=== PATIENT | female | born 1985 | race Caucasian/White ===

== ENCOUNTER 2017-08-24 07:30 | Inpatient (IN) ==
--- OUTSIDE RECORDS SUMMARY | 2017-08-24 11:08 | External Medical Summary | Continuity of Care Document ---
:1985 Author Organization [facility] Address [address] [place], [place] [id number] Phone Care Team Providers Name Role Phone Lynette Stiles MD Unavailable Unavailable Allergies, Adverse Reactions, Alerts Substance Reaction Severity Status No Known Drug Allergies Unknown Active Medications Medication Instructions Dosage Effective Dates Status Comments (start - stop) aspirin 81 mg chew 1 tablet by 81 MG - Active chewable tablet oral route every day labetalol 100 mg take 1 tablet by 100 MG - Active tablet oral route 2 times every day Vitamin take 1 tablet by Not Available - Active tablet oral route every day Zantac 75 mg take 1 tablet by 75 MG - Active tablet oral route every day with a glass of water Problems Condition Effective Dates (start - stop) Clinical Status Maternal care for excess growth, - second tri, unsp 18 weeks gestation of - Supervision of other high risk - pregnancies, first trimester Pre-existing essential htn comp - , first trimester Previous Low Transverse - Obesity complicating , first - trimester Encounter for screening of - mother Encntr screen for infections w sexl - mode of transmiss Encounter for screening for oth - infec/parastc diseases Polycystic ovarian syndrome Morbid (severe) obesity due to excess calories 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 Pap Smear Screening, Cervix Encounter for removal of intrauterine contraceptive device Encounter for removal of intrauterine - contraceptive device Body mass index (BMI) 50-59.9 , adult Supervision of other high risk - pregnancies, first trimester Pre-existing essential htn comp - , first trimester Supervision of other high risk - pregnancies, second trimester Maternal care for excess growth, - second tri, unsp 20 weeks gestation of - Pre-existing essential htn comp - , first trimester 13 weeks gestation of - Supervision of other high risk - pregnancies, second trimester Pre-existing essential htn comp - , second trimester 20 weeks gestation of - Procedures Procedure Date OB Visit No Charge Results Test Name Date and Time Measure Units Reference Range Abnormal Flag Comments Unknown Advance Directives Directive Yes / No Effective Date File Name Unknown Encounters Encounter Practice Location Reason(s) Diagnoses Date Provider Care Team Description For Visit Members Crystal [place] Supervision of Mar- Baez Referring In Womens other high risk 3-201 Brianna. Provider: Health PA, pregnancies, 7 700 Brianna Baez PO [address] second Medical K, 700 1522, [facility] [address], [facility] Dr GARCIA, htn comp 120, Bahman 120, , , second Binh [place], [email or web address] weeks RADHA GARCIA, tel:+2 gestation of [phone]. , [place]. tel: tel: [phone] Crystal [place] Supervision of Mar- Baez Referring In Womens Ultrasound other high risk 3-201 Brianna. Provider: Health PA, pregnancies, 7 700 Brianna Baez [facility] Medical K, 700 1522, [facility] care for excess Dr, [facility] Dr GARCIA, growth, 120, Bahman 120, [id number], second Binh [place], [place] unsp20 weeks RADHA GARCIA, tel:2 gestation of [phone]. , [place]. tel: tel: [phone] Crystal [place] Maternal care for Aug-2 Baez Referring In Womens excess 9-201 Brianna. Provider: Health PA, growth, second 7 700 Brianna Baez PO Box tri, unsp18 weeks Medical K, 700 1522, gestation of [facility] [place], , [facility] Dr GARCIA, 120, Bahman 120, [id number], Binh [place], RADHA, RADHA, tel: [phone]. , [place]. tel: tel: [phone] Crystal [place] Aug-0 Baez Referring In Womens 2-201 Brianna. Provider: Health PA, 7 700 Brianna Baez PO Box Medical , 700 1522, [place] [address], [facility] Dr GARCIA, 120, Bahman 120, [id number], Binh [place], RADHA, [place], tel:[phone]. , [place]. tel: tel: [phone] [place] Pre-existing Farrukh-2 Baez Referring In Womens essential htn 7-201 Brianna. Provider: Health EPHRAIM, comp , 7 700 Brianna Baez PO Box first [email or web address] Medical , 700 1522, weeks gestation [facility], of , [facility] Dr GARCIA, 120, Bahman 120, [id number], Binh [place], RADHA, [place], tel: [phone]. , [place]. tel: tel: [phone] [place] Supervision of Jan-1 Baez Referring In Womens other high risk 0-201 Brianna. Provider: Health PA, pregnancies, 7 700 Brianna Baez PO Box first Medical K, 700 1522, trimesterPre-exis [facility] [place], ting essential , [facility] Dr GARCIA, htn comp 120, Bahman 120, [id number], , first Binh [place], [place] trimester [place], RADHA, tel: [phone]. , [place]. tel: tel: [phone] [place] Supervision of Baez Referring In Womens other high risk 5-201 Brianna. Provider: Health PA, pregnancies, 7 700 Brianna Baez PO Box first Medical K, 700 1522, trimesterPre-exis [place] [address], [facility] Dr GARCIA, htn comp 120, Bahman 120, [id number], , first Binh [place], trimesterPrevious RADHA, RADHA, tel: Low Transverse [phone]. C-SectionObesity , [place]. tel: complicating tel: [phone] , first [phone] trimesterEncounte r for screening of motherEncntr screen for infections w sexl mode of transmissEncounte r for screening for oth infec/parastc diseases [facility] Baez Referring In Womens ovarian 7-201 Brianna. Provider: Health PA, syndromeMorbid 6 700 Brianna Baez PO Box (severe) obesity Medical , 700 1522, due to excess [facility] [place], caloriesEncnthiro Rice, [facility] Dr GARCIA, for drywall sprayer exam 120, Bahman 120, , (general) Binh [place], (routine) w RADHA GARCIA, tel: abnormal [phone]. findingsPap Smear , [place]. tel: Screening, tel: [phone] CervixEncounter [phone] for removal of intrauterine contraceptive deviceEncounter for removal of intrauterine contraceptive deviceBody mass index (BMI) 50-59.9 , adult [facility] Mar-3 Baez In Womens 0-200 Brianna. Health PA, 9 700 PO [address] Medical [address], [place] [address] Anabell, [facility] [place], 120, , [place], tel: [phone] , [place]. tel: [phone] Family History Family Member Diagnosis Age At Onset Father Hypertension No family history of Breast Cancer No family history of Venous Thrombosis Paternal Grandmother Diabetes mellitus Mother Neurological Disorder Father Stroke 59 No family history of Pulmonary Embolism No family history of Ovarian Cancer No family history of Thrombosis No family history of Osteoporosis No family history of Colon Cancer Father Diabetes mellitus No family history of Cardiovascular Disease Maternal Aunt Thyroid Disorder Paternal Grandmother Kidney Cancer Maternal Grandmother Alzheimers Immunizations Vaccine Date Status Comments Unknown Payers Payer name Insurance type Covered green party ID Authorization(s) BC Out Of State [id number] Social History Type Description Quantity Date Captured Alcohol Use Details No Caffeine Use Details Unknown Tobacco Use Status Smoking Status Former smoker Vital Signs Date / Height Weight BMI Pulse Blood Temperature Respiratory Body Head BMI Time: Rate Pressure Rate Surface Circumference percentile Area 288.00 51.0 139/90 -2017 lbs 1 mm[Hg] 8:58 kg/m AM eter (2) 50.5 -2017 2 8:56 kg/m AM eter (2) Chief Complaint And Reason For Visit Unknown Chief Complaint And Reason For Visit Reason For Referral Reason For Referral Unknown Plan Of Care Date Type Action Status Goal Lifestyle education regarding completed diet Appointment Virginia Rosas BOOKED Future Order: Lab Order Pap Smear With HPV Reflex If Ordered ASCUS ([id number]) Future Order: Radiology Order Complete OB Ultrasound > 14 Ordered Weeks ([id number]) Date Type Problem Goal Intervention Status Start Date Unknown. History Of Present Illness Encounter Date Complaint History Of Present Illness This patient has no known history of present illness Functional Status Encounter Date Functional Assessment Cognitive Assessment Unknown Medications Administered Medication Instructions Dosage Effective Dates (start - stop) Status Comments Drug Treatment Unknown Instructions Date Instruction Additional Information HIV and other routine tests risk factors identified by history anticipated course of care nutrition and weight gain counseling, special diet toxoplasmosis precautions (cats / raw meat) sexual activity exercise indications for ultrasound influenza vaccine environmental / work hazards travel tobacco (ask, advise, assess, assist and arrange) alcohol illicit / recreational drugs use of any medications (including supplements, vitamins, herbs, OTC drugs) smoking counseling domestic violence seat belt use childbirth classes / hospital facilities hospital registration genetic testing risks Giving encouragement to exercise Related to Body mass index 50.0-59.9 Lifestyle education regarding diet Related to Body mass index 50.0-59.9
--- OUTSIDE RECORDS SUMMARY | 2017-08-24 11:08 | External Medical Summary | Continuity of Care Document ---
:1985 Author Organization [facility] Address [address] [place], [place] [id number] Phone Care Team Providers Name Role Phone [...] Effective Dates (start - stop) Clinical Status Supervision of other high risk - pregnancies, second trimester Maternal care for excess growth, - second tri, unsp 20 weeks gestation of - Supervision of other high risk - pregnancies, first trimester Pre-existing essential htn comp - , first trimester Previous Low Transverse - Obesity complicating , first - trimester Encntr screen for infections w sexl - mode of transmiss Encounter for screening for oth - infec/parastc diseases Encounter for screening of - mother Polycystic ovarian syndrome Morbid (severe) obesity due to excess calories 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 [...] second trimester 20 weeks gestation of - Pre-existing essential htn comp - , first trimester 13 weeks gestation of - Maternal care for excess growth, - second tri, unsp 18 weeks gestation of - Procedures Procedure Date Ultrasound exam of preg uterus, complete Results Test Name Date and Time Measure Units Reference Range Abnormal Flag Comments Unknown Advance Directives Directive Yes / No Effective Date File Name Unknown Encounters Encounter Practice Location Reason(s) Diagnoses Date Provider Care Team Description For Visit Members Crystal [place] Supervision of Mar- Baez Referring In Womens other high risk 3-201 Brianna. Provider: Health PA, pregnancies, 7 700 Brianna Baez PO Box [facility] Medical K, 700 1522, trimesterPre-exis [facility] [address], [facility] Dr GARCIA, htn comp 120, Bahman 120, , , second Binh [place], [email or web address] weeks RADHA GARCIA, tel:+2 gestation of [phone]. , [place]. tel: tel: [phone] Crystal [place] Supervision of Mar- Baez Referring In Womens Ultrasound other high risk 3-201 Brianna. Provider: Health PA, pregnancies, 7 700 Brianna Baez PO Box second Medical K, 700 1522, trimesterMaternal [facility] [place], dominic for excess Dr, [facility] Dr GARCIA, growth, 120, Bahman 120, [id number], second Binh miller [place], [place] unsp20 weeks RADAH GARCIA, tel:2 gestation of [phone]. , [place]. tel: tel:[phone] Crystal [place] Maternal care for Aug-2 Baez Referring In Womens excess 9-201 Brianna. Provider: Health PA, growth, second 7 700 Brianna Baez PO Box tri, unsp18 weeks Medical , 700 1522, gestation of [facility], , [facility] Dr GARCIA, 120, Bahman 120, , Binh [place], RADHA, RADHA, tel: [phone]. , [place]. tel: tel: [phone] Crystal [place] Aug-0 Baez Referring In Womens 2-201 Brianna. Provider: Health PA, 7 700 Brianna Baez PO Box Medical , 700 1522, [facility] Dr Anabell, [facility] Dr GARCIA, 120, Bahman 120, , Binh [place], RADHA, [place], tel:[phone]. , [place]. tel: tel: [phone] Crystal [place] Pre-existing Farrukh-2 Baez Referring In Womens essential htn 7-201 Brianna. Provider: Health PA, comp , 7 700 Brianna Baez PO Box first [email or web address] Medical , 700 1522, weeks gestation [facility], of , [facility] Dr GARCIA, 120, Bahman 120, , Binh [place], RADHA, [place], tel: [phone]. , [place]. tel: tel: [phone] [place] Supervision of Jan-1 Baez Referring In Womens other high risk 0-201 Brianna. Provider: Health PA, pregnancies, 7 700 Brianna Baez PO Box first Medical , 700 1522, trimesterPre-exis [facility] [place], ting essential , [facility] Dr GARCIA, htn comp 120, Bahman 120, [id number], , first Binh [place], [place] trimester RADHA, RADHA, tel: [phone]. , [place]. tel: tel: [phone] [place] Supervision of Baez Referring In Womens other high risk 5-201 Brianna. Provider: Health PA, pregnancies, 7 700 Brianna Baez PO Box first Medical K, 700 1522, trimesterPre-exis [place] [address], [facility] Dr GARCIA, htn comp 120, Bahman 120, [id number], , first Binh [place], trimesterPrevious RADHA, RADHA, tel: Low Transverse [phone]. C-SectionObesity , [place]. tel: complicating tel: [phone] , first [phone] trimesterEncntr screen for infections w sexl mode of transmissEncounte r for screening for oth infec/parastc diseasesEncounter for screening of mother Crystal Cárdenas Baez Referring In Womens ovarian 7-201 Brianna. 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 findingsPap Smear , [place]. tel: Screening, tel: [phone] CervixEncounter [phone] for removal of intrauterine contraceptive deviceEncounter for removal of intrauterine contraceptive deviceBody mass index (BMI) 50-59.9 , adult [facility] Sep-3 Baez In Womens 0-200 Brianna. Health PA, 9 700 PO [address] Medical [address], [place] [address] Anabell, [facility] [place], 120, , [place], [place], tel: [phone] , [place]. tel: [phone] Family History Family Member Diagnosis Age At [...] Insurance type Covered green party ID Authorization(s) BCBS Out Of State [id number] Social History Type Description Quantity Date Captured Unknown Vital Signs Date / Height Weight BMI Pulse Blood Temperature Respiratory Body Head BMI Time: Rate Pressure Rate Surface Circumference percentile Area Unknown Chief Complaint And Reason For Visit Unknown Chief Complaint And Reason For Visit Reason For Referral Reason For Referral Unknown Plan Of Care Date Type Action Status Goal Lifestyle education regarding completed diet Appointment Virginia Rosas BOOKED Future Order: Radiology Order Complete OB Ultrasound > 14 Ordered Weeks ([id number]) Future Order: Lab Order Pap Smear With HPV Reflex If Ordered ASCUS ([id number]) Date Type Problem Goal Intervention Status Start [...]
--- OUTSIDE RECORDS SUMMARY | 2017-08-24 11:08 | External Medical Summary | Summary of Care ---
:1985 Author Name Isael Devries M.D. Address Unavailable Unavailable , Care Team Providers Name Role Phone Isael Devries M.D. 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 Started ActiveNIFEdipine ER 30 MG Oral Tablet Extended Release 24 Hour Refills: 0 Arpan Devries M.D. Started ActiveNIFEdipine ER 60 MG Oral Tablet Extended Release 24 Hour Refills: 0 Arpan Devries M.D. Started ActivePrenatal Vitamin 27-0.8 MG Oral Tablet Refills: 0 Arpan Devries M.D. Started ActiveZantac 150 MG Oral Tablet Refills: 0 Arpan Devries M.D. Started Active Allergies and Adverse Reactions Name Dates Details No Known Drug Allergies Status: Active Procedures Procedure Dates Details History of Section Procedures not documented Immunization Name Dates Details Immunizations not documented Family History Mother Name Dates Details Family history of Seizures (780.39, R56.9) Status: Active Father Name Dates Details Family history of diabetes mellitus (V18.0, Z83.3) Status: Active Family history of sleep apnea (V19.8, Z82.0) Status: Active Family history of cerebrovascular accident (CVA) (V17.1, Z82.3) Status: Active Family history of myocardial infarction (V17.3, Z82.49) Status: Active Social History Name Dates Details Smoking StatusFormer smoker Vital Signs Date Test Result Details 13:19 BP Systolic 122 mm[Hg] Status: BP Diastolic 84 mm[Hg] Status: Heart Rate 80 /min Status: Height 64 in Status: Weight 318 lb Status: O2 SAT 96 % Status: Body Mass Index Calculated 54.59 kg/m2 Status: Body Surface Area Calculated 2.38 m2 Status: Results Date Description Value Details Results not documented Plan of Care Planned Observations Name Dates Details Planned Goals not documented Goal Instructions Instructions not documented Encounters Appointment; Arpan Devries On Encounter Diagnosis: Problem not documented 13:30 Appointment; Sanna Morejon On 20-Aug-2014 Encounter Diagnosis: Problem not documented 10:15
--- OUTSIDE RECORDS SUMMARY | 2017-08-24 11:08 | External Medical Summary | Continuity of Care Document ---
:1985 Author Organization [facility] Address [address] [place], [place] [id number] Phone Care Team Providers Name Role Phone [...] every day with a glass of water iron 325 mg (65 mg take 1 tablet by 325 MG - Active iron) tablet ORAL route 2 times every day Problems Condition Effective Dates (start - stop) Clinical Status Pre-existing essential htn comp - , third trimester Maternal care for excess growth, - third trimester, unsp Obesity complicating , third - trimester 29 weeks gestation of - Supervision of other high risk - pregnancies, first trimester Pre-existing essential htn comp - , first trimester Previous Low Transverse - Obesity complicating , first - trimester Encntr screen for infections w sexl - mode of transmiss Encounter for screening for oth - infec/parastc diseases Encounter for screening of - mother Pre-existing essential htn comp - , second trimester Previous Low Transverse - 27 weeks gestation of - Polycystic ovarian syndrome Morbid (severe) obesity due to excess calories 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 [...] essential htn comp - , second trimester 24 weeks gestation of - Supervision of other high risk - pregnancies, second trimester Maternal care for excess growth, - second tri, unsp 20 weeks gestation of - Supervision of other high risk - pregnancies, second trimester Pre-existing essential htn comp - , second trimester 20 weeks gestation of - Supervision of other high risk - pregnancies, third trimester Pre-existing essential htn comp - , third trimester Previous Low Transverse - Obesity complicating , third - trimester Pre-existing essential htn comp - , first trimester 13 weeks gestation of - Pre-existing essential htn comp - , third trimester 32 weeks gestation of - Maternal care for excess growth, - second tri, unsp 18 weeks gestation of - Procedures Procedure Date Ultrasnd preg uterus, flwup/repeat Results Test Name Date and Time Measure Units Reference Range Abnormal Flag Comments Unknown Advance Directives Directive Yes / No Effective Date File Name Unknown Encounters Encounter Practice Location Reason(s) Diagnoses Date Provider Care Team Description For Visit Members Crystal [place] Pre-existing Baez Referring In Womens essential htn 5-201 Brianna. Provider: Health EPHRAIM, comp , 7 700 Brianna Baez PO Box third [id number] Medical K, 700 1522, weeks gestation [facility], of , [facility] [address] GARCIA, 120, [place] 120, [id number], Binh [place], RADHA GARCIA, tel:+ [phone]. , [place]. tel: tel:[phone] Associates Binh Supervision of Nov-2 Baez Referring In Womens other high risk 0-201 Brianna. Provider: Health PA, pregnancies, 7 700 Brianna Baez PO Box third Medical K, 700 1522, trimesterPre-exis [facility], ting essential , [facility] Dr GARCIA, htn comp 120, [place] 120, , , third Binh [place], trimesterPrevious RADHA GARCIA, tel:+ Low Transverse [phone]. [facility] [place]. tel: complicating tel:[phone] , third [phone] trimester Associates [facility] Pre-existing Nov-2 Baez Referring In Womens Ultrasound essential htn 0-201 Brianna. Provider: Health EPHRAIM, comp , 7 700 Brianna Baez PO Box third Medical K, 700 1522, trimesterMaternal [facility], care for excess , [facility] Dr GARCIA, growth, 120, [place] 120, , third trimester, Binh [place], unspObesity RADHA GARCIA, tel: complicating [phone]. , third , [place]. tel: [id number] weeks tel: [phone] gestation of [id number] Associates [facility] Pre-existing Nov-0 Baez Referring In Womens essential htn 2-201 Brianna. Provider: Health EPHRAIM, comp , 7 700 Brianna Baez PO Box second Medical K, 700 1522, trimesterPrevious [facility], Low Transverse , [facility] Dr GARCIA, [id number] weeks 120, [place] 120, , gestation of Binh [place], [place] RADHA GARCIA, tel:[phone]. , [place]. tel: tel: [phone] Crystal [place] Supervision of Oct-1 Baez Referring In Womens other high risk 0-201 Brianna. Provider: Zack YE, pregnancies, 7 700 Brianna Baez PO Box second Medical , 700 1522, trimesterPre[facility]exis [facility], [facility] Dr GARCIA, htn comp 120, [place] 120, [id number], , second Binh [place], [place] [id number] weeks RADHA, RADHA, tel:+ gestation of [phone]. , [place]. tel: tel: [phone] Crystal [place] Supervision of Sep-1 Baez Referring In Womens other high risk 3-201 Brianna. Provider: Zack YE, pregnancies, 7 700 Brianna Baez PO Box [facility] Medical , 700 1522, trimesterPre-exis [facility], [facility] Dr GARCIA, htn comp 120, [place] 120, [id number], , second Binh [place], [place] [id number] weeks RADHA, RADHA, tel: gestation of [phone]. , [place]. tel: tel: [phone] Crystal [place] Supervision of Sep-1 Baez Referring In Womens Ultrasound other high risk 3-201 Brianna. Provider: Zack YE, pregnancies, 7 700 Brianna Baez PO Box second Medical , 700 1522, trimesterMaternal [facility], care for excess Dr, [facility] Dr GARCIA, growth, 120, [place] 120, [id number], second Binh [place], [place] unsp20 weeks RADHA GARCIA, tel: gestation of [phone]. , [place]. tel: tel: [phone] Crystal [place] Maternal care for Aug-2 Baez Referring In Womens excess 9-201 Brianna. Provider: Zack YE, growth, second 7 700 Brianna Baez PO Box tri, unsp18 weeks Medical , 700 1522, gestation of [facility], , [facility] Dr GARCIA, 120, [place] 120, [id number], Binh [place], RADHA, RADHA, tel: [phone]. , [place]. tel: tel: [phone] Crystal [place] Aug-0 Baez Referring In Womens 2-201 Brianna. Provider: Health PA, 7 700 Brianna Baez PO Box [facility], 700 1522, [facility] Dr Anabell, [facility] Dr GARCIA, 120, [place] 120, , Binh [place], [place] RADHA, [place], tel:[phone]. , [place]. tel: tel: [phone] Crystal [place] Pre-existing Farrukh-2 Baez Referring In Womens essential htn 7-201 Brianna. Provider: Health PA, comp , 7 700 Brianna Baez PO Box first [id number] [place] [address], 700 1522, weeks gestation [facility], of , [facility] Dr GARCIA, 120, [place] 120, [id number], Binh [place], RADHA, [place], tel: [phone]. , [place]. tel: tel: [phone] Crystal [place] Supervision of Jan-1 Baez Referring In Womens other high risk 0-201 Brianna. Provider: Health PA, pregnancies, 7 700 Brianna Baez PO Box [facility], 700 1522, trimesterPre-exis [facility] [address], [facility] Dr GARCIA, htn comp 120, [place] 120, , , first Binh [place], [place] trimester RADHA, RADHA, tel: [phone]. , [place]. tel: tel: [phone] Crystal [place] Supervision of Jan-0 Baez Referring In Womens other high risk 5-201 Brianna. Provider: Health PA, pregnancies, 7 700 Brianna Baez PO Box first [facility], 700 1522, trimesterPre-exis [facility], [facility] Dr GARCIA, htn comp 120, [place] 120, [id number], , first Binh [place], trimesterPrevious RADHA, RADHA, tel: Low Transverse [phone]. C-SectionObesity , [place]. tel: complicating tel: [phone] , first [phone] trimesterEncntr screen for infections w sexl mode of transmissEncounte r for screening for oth infec/parastc diseasesEncounter for screening of mother [facility] Polycystic November- Baez Referring In Womens ovarian 7-201 Brianna. Provider: Health PA, syndromeMorbid 6 700 Brianna Baez PO Box (severe) obesity Medical , 700 1522, due to excess [place] Joaquina Hung, caloriesEncntr , [facility] Dr GARCIA, for fiber optics supervisor exam 120, [place] 120, [id number], (general) Binh [place], (routine) w RADHA GARCIA, tel: abnormal [phone]. findingsPap Smear , [place]. tel: Screening, tel: [phone] CervixEncounter [id number] for removal of intrauterine contraceptive deviceEncounter for removal of intrauterine contraceptive deviceBody mass index (BMI) 50-59.9 , adult [facility] Sep-3 Baez In Womens 0-200 Brianna. Health PA, 9 700 PO Box Medical [address], [address] Anabell, [place], 120, [id number], [place], [place], tel: [phone] , [place]. tel: [phone] Family History Family Member Diagnosis Age At [...] Grandmother Alzheimers Immunizations Vaccine Date Status Comments Tdap completed Source: New Immunization Record Rhophylac completed Source: New Immunization Record Influenza, injectable, completed Source: New Immunization Record quadrivalent, preservative free, 3 yrs or older Payers Payer name Insurance type Covered alliance party ID Authorization(s) BCBS [place] [id number] BCBS [place] [id number] BCBS [place] [id number] BCBS Out Of [place] [id number] Social History Type Description Quantity Date Captured [...] regarding completed diet Appointment Virginia Rosas BOOKED Appointment Virginia Rosas BOOKED Appointment Virginia Rosas BOOKED Appointment Virginia Rosas BOOKED Appointment Virginia Rosas BOOKED Appointment Virginia Rosas BOOKED Appointment Virginia Rosas BOOKED Appointment Virginia Rosas [facility] C/S BOOKED Future Order: Radiology Order Ultrasound OB Follow-up ([id number]) Ordered Future Order: Lab Order Pap Smear With HPV Reflex If Ordered ASCUS ([id number]) Future Order: Radiology Order Complete OB Ultrasound > 14 Ordered Weeks ([id number]) Date Type Problem Goal Intervention Status Start Date Unknown. History Of Present Illness Encounter Date Complaint History Of Present Illness This patient has no known history of present illness Functional Status Encounter Date Functional Assessment Cognitive Assessment Unknown Medications Administered Medication Instructions Dosage Effective Dates (start - stop) Status Comments Drug Treatment Unknown Instructions Date Instruction Additional Information gestational glucose lab screening HIV and other routine tests risk factors [...]
--- OUTSIDE RECORDS SUMMARY | 2017-08-24 11:08 | External Medical Summary | Continuity of Care Document ---
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 Pap Smear Screening, Cervix Encounter for removal of intrauterine contraceptive device Encounter for removal of intrauterine - contraceptive device Body mass index (BMI) 50-59.9 , adult Supervision of other high risk - pregnancies, first trimester Pre-existing essential htn comp - , first trimester Pre-existing essential htn comp - , first trimester Procedures Procedure Date Unknown Results Test Name Date and Time Measure Units Reference Range Abnormal Flag Comments Unknown Advance Directives Directive Yes / No Effective Date File Name Unknown Encounters Encounter Practice Location Reason(s) Diagnoses Date Provider Care Team Description For Visit Members Crystal [place] Pre-existing Jan-2 Baez Referring In Womens essential htn comp 7-201 Brianna. Provider: Health EPHRAIM, , first 7 700 Brianna Baez PO Box [facility] Medical K, 700 1522, [place] [address], [facility] Dr GARCIA, 120, [place] 120, , Binh [place], RADHA, [place], tel: [phone]. , [place]. tel: tel: [phone] Crystal [place] Supervision of Jan-1 Baez Referring In Womens other high risk 0-201 Brianna. Provider: Health EPHRAIM, pregnancies, first 7 700 Brianna Baez PO Box trimesterPre-exist Medical , 700 152, ing [facility] Dr janine, [facility] Dr GARCIA, first trimester 120, [place] 120, , Binh [place], RADHA, [place], tel:[phone]. , [place]. tel: tel: [phone] Crystal [place] Farrukh-0 Baez In Womens 6-201 Brianna. Health EPHRAIM, 7 700 PO Box Medical [address], [place] [address] Anabell, [facility] [place], 120, [id number], [facility] [place], tel: [phone] , [place]. tel: [phone] Crystal Pur[place] Supervision of Farrukh-0 Baez Referring In Womens other high risk 5-201 Brianna. Provider: Health EPHRAIM, pregnancies, first 7 700 Brianna Baez PO Box trimesterPre-exist Medical K, 700 1522, ing [facility]tn [facility], comp Dr janine, [facility] Dr GARCIA, first 120, [place] 120, , trimesterPrevious Binh [place], Low Transverse RADHA, RADHA, tel: C-SectionObesity [phone]. complicating , [place]. tel: , first tel: [phone] trimesterEncntr [id number] screen for infections w sexl mode of transmissEncounter for screening for oth infec/parastc diseasesEncounter for screening of mother Crystal Binh Polycystic ovarian November- Baez Referring In Womens syndromeMorbid 7-201 Brianna. Provider: Health EPHRAIM, (severe) obesity 6 700 Brianna Baez PO Box due to excess Medical K, 700 1522, caloriesEncntr for Center Joaquina Hung, dope firer exam (general) , [place] [address] Dr GARCIA, (routine) w 120, [place] 120, [id number], abnormal Binh [place], findingsPap Smear RADHA GARCIA, tel: Screening, [phone]. CervixEncounter , [place]. tel: for removal of tel: [phone] intrauterine [id number] contraceptive deviceEncounter for removal of intrauterine contraceptive deviceBody mass index (BMI) 50-59.9 , adult [facility] Sep-3 Baez In Womens 0-200 Brianna. Health EPHRAIM, 9 700 PO Box Medical [address], [place] [address] Anabell, [place], 120, , [place] Binh [place], tel: [phone] , [place]. tel: [phone] Family History Family Member Diagnosis Age At [...] Unknown Payers Payer name Insurance type Covered democrat ID Authorization(s) BCBS Out Of State [id number] Social History Type Description Quantity Date Captured Unknown Vital Signs Date / Height Weight BMI Pulse Blood Temperature Respiratory Body Head BMI Time: Rate Pressure Rate Surface Circumference percentile Area Unknown Chief Complaint And Reason For Visit Unknown Chief Complaint And Reason For Visit Reason For Referral Reason For Referral Unknown Plan Of Care Date Type Action Status Goal Lifestyle education regarding diet completed Future Order: Lab Order Pap Smear With HPV Reflex If ASCUS Ordered ([id number]) Date Type Problem Goal Intervention Status [...]
--- OUTSIDE RECORDS SUMMARY | 2017-08-24 11:08 | External Medical Summary | Continuity of Care Document ---
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 Health EPHRAIM, 7 700 PO Box Medical [address], [place] [address] Anabell, [facility], 120, [id number], [place], [place], tel:[phone] , [place]. tel: [phone] Crystal [place] Supervision of Apr- Baez Referring In Womens other high risk 0-201 Brianna. Provider: Health EPHRAIM, pregnancies, 7 700 Brianna Baez PO Box second Medical K, 700 1522, trimesterPre-exis [place] jaylen Estrada essential , [facility] Dr GARCIA, htn comp 120, [place] 120, [id number], , second Binh [place], [id number] weeks RADHA, RADHA, tel: gestation of [phone]. , [place]. tel: tel: [phone] Crystal [place] Supervision of Mar- Baez Referring In Womens other high risk 3-201 Brianna. Provider: Health EPHRAIM, pregnancies, 7 700 Brianna Baez PO Box second Medical K, 700 1522, trimesterPre-exis [facility], ting essential , [facility] Dr GARCIA, htn comp 120, [place] 120, [id number], , second Binh [place], [id number] weeks RADAH GARCIA, tel:+ gestation of [phone]. , [place]. tel: tel: [phone] Crystal [place] Supervision of Sep-1 Baez Referring In Womens Ultrasound other high risk 3-201 Brianna. Provider: Health EPHRAIM, pregnancies, 7 700 Brianna Baez PO Box second Medical K, 700 1522, [facility] for excess Dr, [facility] Dr GARCIA, growth, 120, [place] 120, , second paul, Binh [place], unsp20 weeks RADHA GARCIA, tel:+ gestation of [phone]. , [place]. tel: tel: [phone] Crystal [place] Maternal care for Aug-2 Baez Referring In Womens excess 9-201 Brianna. Provider: Zack YE, growth, second 7 700 Brianna Baez PO Box tri, unsp18 weeks Medical K, 700 1522, gestation of [facility] [place], Dr, [facility] Dr GARCIA, 120, [place] 120, [id number], Binh [place], RADHA GARCIA, tel: [phone]. , [place]. tel: tel: [phone] Crystal Purcell Aug-0 Baez Referring In Womens 2-201 Brianna. Provider: Zack YE, 7 700 Brianna Baez PO Box Medical K, 700 1522, [facility] [place], , [facility] Dr GARCIA, 120, [place] 120, [id number], Binh [place], RADHA [place], tel: [phone]. , [place]. tel: tel: [phone] Crystal [place] Pre-existing Farrukh-2 Baez Referring In Womens essential htn 7-201 Brianna. Provider: Health PA, comp , 7 700 Brianna Baez PO Box first [id number] Medical K, 700 1522, weeks gestation [place] Joaquina Hung, of , [facility] Dr GARCIA, 120, [place] 120, , Binh [place], RADHA GARCIA, tel:+ [phone]. , [place]. tel: tel: [phone] [place] Supervision of Baez Referring In Womens other high risk 0-201 Brianna. Provider: Health PA, pregnancies, 7 700 Brianna Baez PO Box first Medical , 700 1522, trimesterPre-exis [facility] jaylen Hung Dr, [facility] Dr GARCIA, htn comp 120, [place] 120, , , first Binh [place], [place] trimester RADHA, RADHA, tel: [phone]. , [place]. tel: tel: [phone] Crystal [place] Supervision of Jan-0 Baez Referring In Womens other high risk 5-201 Brianna. Provider: Health PA, pregnancies, 7 700 Brianna Baez PO Box first Medical , 700 1522, trimesterPre-exis [facility] jaylen Hung Dr, [facility] Dr GARCIA, htn comp 120, [place] 120, , , first Binh [place], trimesterPrevious RADHA GARCIA, tel:2 Low Transverse [phone]. C-SectionObesity , [place]. tel: complicating tel: [phone] , first [phone] trimesterEncntr screen for infections w sexl mode of transmissEncounte r for screening for oth infec/parastc diseasesEncounter for screening of mother Crystal [place] Polycystic November- Baez Referring In Womens ovarian 7-201 Brianna. Provider: Health EPHRAIM, syndromeMorbid 6 700 Brianna Baez PO Box (severe) obesity Medical , 700 1522, due to excess [place] Joaquina Hung, caloriesEncntr , [facility] Dr GARCIA, for logistics planning manager exam 120, [place] 120, [id number], (general) Binh [place], (routine) w [place], [place], tel: abnormal [phone]. findingsPap Smear , [place]. tel: Screening, tel: [phone] CervixEncounter [id number] for removal of intrauterine contraceptive deviceEncounter for removal of intrauterine contraceptive deviceBody mass index (BMI) 50-59.9 , adult Associates Binh Sep-3 Baez In Womens 0-200 [facility], 9 700 PO [facility] 1522, [place] [address] Anabell, [place], 120, [id number], [place], [place], tel: [phone] , [place]. tel: [phone] Family History Family Member Diagnosis Age At [...] Grandmother Alzheimers Immunizations Vaccine Date Status Comments Influenza, injectable, completed Source: New Immunization Record quadrivalent, preservative free, 3 yrs or older Payers Payer name Insurance type Covered green party ID Authorization(s) BCBS Out Of [place] [id number] BCBS Out [place] [id number] Social History Type Description Quantity Date Captured [...] Complete OB Ultrasound > 14 Ordered Weeks (62590) Date Type Problem Goal Intervention Status Start [...]
--- OUTSIDE RECORDS SUMMARY | 2017-08-24 11:08 | External Medical Summary ---
:1985 Author Organization [facility] Address [address] [id number] Care Team Providers Name Role Phone Era Bonds Unavailable Unavailable PROBLEMS Type Condition ICD9-CM Code [id number] Code Onset Condition SNOMED Code Dates Status Problem PCOS (polycystic E28.2 Active 25368358 ovarian syndrome) Problem Dysmenorrhea N94.6 Active 671042531 Problem Morbid obesity E66.01 Active 323379215 due to excess calories ALLERGIES Unknown Allergies SOCIAL HISTORY No smoking Hx information available PLAN OF CARE VITAL SIGNS MEDICATIONS Medication Instructions Dosage Frequency Start End Date Duration Status Date Labetalol HCl Orally Two times 1 tablet Active 100 MG daily Zantac 75 75 MG Orally once a day 1 tablet Active as needed MetFORMIN HCl Orally Two times 2 tablets 90 days Active ER 500 mg daily RESULTS No Results PROCEDURES No Known procedures IMMUNIZATIONS No Known Immunizations
--- OUTSIDE RECORDS SUMMARY | 2017-08-24 11:08 | External Medical Summary ---
:1985 Author Organization [facility] Address [address] [phone] Care Team Providers Name Role Phone Era Bonds Unavailable Unavailable PROBLEMS Type Condition ICD9-CM CGU33-VI Onset Condition SNOMED Code Code Code Dates Status Problem PCOS (polycystic E28.2 Active 68398469 ovarian syndrome) Problem Dysmenorrhea N94.6 Active 585070563 Problem Morbid obesity E66.01 Active 454682743 due to excess calories Assessment Morbid obesity E66.01 06 Sep, Active 791111539 due to excess 2017 calories ALLERGIES Unknown Allergies SOCIAL HISTORY No smoking Hx information available PLAN OF CARE VITAL SIGNS MEDICATIONS Medication Instructions Dosage Frequency Start End Date Duration Status Date MetFORMIN HCl Orally Twice 2 tablets 30 days Active ER 500 MG daily with evening meal Zantac 75 75 MG Orally once a 1 tablet Active day as needed Labetalol HCl Orally Two times 1 tablet Active 100 MG daily RESULTS No Results PROCEDURES No Known procedures IMMUNIZATIONS No Known Immunizations
--- OUTSIDE RECORDS SUMMARY | 2017-08-24 11:08 | External Medical Summary | Continuity of Care Document ---
:1985 Author Organization [facility] Address [address] [place], [place] [id number] Phone Care Team Providers Name Role Phone [...] - Obesity complicating , third - trimester Supervision of other high risk - [...] obesity due to excess calories Encntr for map drafter exam (general) - (routine) w abnormal findings [...] third trimester 32 weeks gestation of - Pre-existing essential htn comp - , third trimester Maternal care for excess growth, - third trimester, unsp Obesity complicating , third - trimester 29 weeks gestation of - Maternal care for excess growth, - second tri, unsp 18 weeks gestation of - Procedures Procedure Date OB Visit No 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 Provider: Health EPHRAIM, comp , 7 700 Brianna Baez PO [address] third [id number] Medical K, 700 1522, weeks gestation [facility], of , [facility] Dr GARCIA, 120, [place] 120, [id number], Binh [place], RADHA GARCIA, tel: [phone]. , [place]. tel: tel:[phone] Associates [facility] Supervision of Nov-2 Baez Referring In Womens other high risk 0-201 Brianna. Provider: Health PA, pregnancies, 7 700 Brianna Baez PO Box third Medical K, 700 1522, trimesterPre-exis [facility], tinkierra essential , [facility] Dr GARCIA, htn comp 120, [place] 120, [id number], , third Binh [place], [place] trimesterPrevious RADHA GARCIA, tel: Low Transverse [phone]. [facility] [place] [facility] [place]. tel: complicating tel:[phone] , third [phone] trimester [facility] Pre-existing Nov-2 Baez Referring In Womens Ultrasound essential htn 0-201 Brianna. Provider: Health EPHRAIM, comp , 7 700 Brianna Baez PO Box third Medical K, 700 1522, trimesterMaternal [facility], care for excess , [facility] Dr GARCIA, growth, 120, [place] 120, [id number], third trimester, Binh [place], unspObesity RADHA GARCIA, tel: complicating [phone]. , third , [place]. tel: lchtyjarw12 weeks tel:4153 gestation of [id number] Associates [facility] Pre-existing Nov-0 Baez Referring In Womens essential htn 2-201 Brianna. Provider: Health EPHRAIM, comp , 7 700 Brianna Baez PO Box second Medical K, 700 1522, trimesterPrevious [facility], Low Transverse , [facility] Dr GARCIA, [id number] weeks 120, [place] 120, [id number], gestation of Binh [place], [place] RADHA GARCIA, tel:[phone]. , [place]. tel: tel: [phone] Crystal [place] Supervision of Oct-1 Baez Referring In Womens other high risk 0-201 Brianna. Provider: Health EPHRAIM, pregnancies, 7 700 Brianna Baez PO Box second Medical K, 700 1522, trimesterPre-exis [facility], [facility] Dr GARCIA, htn comp 120, [place] 120, [id number], , second Binh [place], [place] [id number] weeks RADHA, RADHA, tel: gestation of [phone]. , [place]. tel: tel: [phone] Crystal [place] Supervision of Sep-1 Baez Referring In Womens other high risk 3-201 Brianna. Provider: Zack YE, pregnancies, 7 700 Brianna Baez PO Box second Medical , 700 1522, trimesterPre-exis [facility], [facility] Dr GARCIA, htn comp 120, [place] 120, , , second Binh [place], [place] [id number] weeks RADHA, RADHA, tel: gestation of [phone]. , [place]. tel: tel: [phone] Crystal [place] Supervision of Sep- Baez Referring In Womens Ultrasound other high risk 3-201 Brianna. Provider: Zack YE, pregnancies, 7 700 Brianna Baez PO Box second Medical , 700 1522, trimesterMaternal [facility], care for excess Dr, [facility] Dr GARCIA, growth, 120, [place] 120, [id number], second Binh [place], [place] unsp20 weeks RADHA, RADHA, tel: gestation of [phone]. , [place]. tel: tel: [phone] Crystal [place] Maternal care for Aug-2 Baez Referring In Womens excess 9-201 Brianna. Provider: Zack YE, growth, second 7 700 Brianna Baez PO Box tri, unsp18 weeks Medical , 700 1522, gestation of [facility], , [facility] Dr GARCIA, 120, [place] 120, [id number], Binh [place], RADHA, RADHA, tel: [phone]. , [place]. tel: tel: [phone] Crystal [place] Aug-0 Baez Referring In Womens 2-201 Brianna. Provider: Health [place], 7 700 Brianna Baez PO Box Medical , 700 1522, [facility] [place], , [facility] Dr GARCIA, 120, [place] 120, , Bin[place], [place], [place], tel:[phone]. , [place]. tel: tel: [phone] Crystal [place] Pre-existing Farrukh-2 Baez Referring In Womens essential htn 7-201 Brianna. Provider: Health PA, comp , 7 700 Brianna Baez PO Box first [id number] [place] [address], 700 1522, weeks gestation [facility], of , [facility] Dr GARCIA, 120, [place] 120, , Binh [place], RADHA, RADHA, tel: [phone]. , [place]. tel: tel: [phone] Crystal [place] Supervision of Jan-1 Baez Referring In Womens other high risk 0-201 Brianna. Provider: Health PA, pregnancies, 7 700 Brianna Baez PO Box [facility], 700 1522, trimesterPre-exis [facility] j[address]len Hung Dr, [facility] Dr GARCIA, htn comp 120, [place] 120, [id number], , first Binh [place], [place] trimester RADHA, RADHA, tel:[phone]. , [place]. tel: tel: [phone] Crystal [place] Supervision of Jan-0 Baez Referring In Womens other high risk 5-201 Brianna. Provider: Health PA, pregnancies, 7 700 Brianna Baez PO Box first [facility], 700 1522, trimesterPre-exis [facility], [facility] Dr GARCIA, htn comp 120, [place] 120, [id number], , first Binh [place], trimesterPrevious RADHA, RADHA, tel: Low Transverse [phone]. C-SectionObesity , [place]. tel: complicating tel: [phone] , first [id number] trimesterEncntr screen for infections w sexl mode of transmissEncounte r for screening for oth infec/parastc diseasesEncounter for screening of mother [facility] Polycystic November- Baez Referring In Womens ovarian 7-201 Brianna. Provider: Health PA, syndromeMorbid 6 700 Brianna Baez PO Box (severe) obesity Medical K, 700 1522, due to excess [place] Joaquina Hung, caloriesEncntr , [facility] Dr GARCIA, for map drafter exam 120, [place] 120, , (general) Binh [place], (routine) w RADHA GARCIA, tel: abnormal [phone]. findingsPap Smear , [place]. tel: Screening, tel: [phone] CervixEncounter [phone] for removal of intrauterine contraceptive deviceEncounter for removal of intrauterine contraceptive deviceBody mass index (BMI) 50-59.9 , adult [facility] [place] Sep-3 Baez In Womens 0-200 Brianna. Health PA, 9 700 PO [address] Medical [address], [address] [place], [place], 120, [id number], [facility] [place], tel: [phone] , [place]. tel: [phone] Family History Family Member Diagnosis Age At [...] party ID Authorization(s) BC[employer] Out Of [place] [id number] [employer] [place] [id number] [employer] Out [place] [id number] [employer] Out [place] [id number] Social History Type Description Quantity Date Captured Alcohol Use Details No Caffeine Use Details Unknown Tobacco Use Status Smoking Status Former smoker Vital Signs Date / Height Weight BMI Pulse Blood Temperature Respiratory Body Head BMI Time: Rate Pressure Rate Surface Circumference percentile Area 297.00 52.6 133/ lbs 0 mm[Hg] 9:04 kg/m AM eter (2) Chief Complaint And [...] Appointment Virginia Rosas BOOKED Appointment Virginia Rosas [facility] [place] [place] R C/S BOOKED Future Order: Lab Order Pap Smear With HPV Reflex If Ordered ASCUS ([id number]) Future Order: Radiology Order Complete OB Ultrasound > 14 Ordered Weeks ([id number]) Future Order: Radiology Order Ultrasound OB Follow-up ([id number]) Ordered Date Type Problem Goal Intervention Status Start [...]
--- OUTSIDE RECORDS SUMMARY | 2017-08-24 11:08 | External Medical Summary | Continuity of Care Document ---
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 Provider: Health PA, pregnancies, 7 700 Brianna Baez PO Box [facility] Medical K, 700 1522, trimesterPre-exis [facility] j[address] Dr, [facility] Dr GARCIA, htn comp 120, [place] 120, , , second Binh [place], [id number] weeks RADHA GARCIA, tel:+2 gestation of [phone]. , [place]. tel: tel: [phone] Crystal [place] Supervision of Mar- Baez Referring In Womens Ultrasound other high risk 3-201 Brianna. Provider: Health PA, pregnancies, 7 700 Brianna Baez PO Box [facility] Medical K, 700 1522, [facility] dominic for excess , [facility] Dr GARCIA, growth, 120, [place] 120, [id number], second Binh [place], unsp20 weeks RADHA GARCIA, tel:2 gestation of [phone]. , [place]. tel: tel:[phone] Crystal [place] Maternal care for Aug-2 Baez Referring In Womens excess 9-201 Brianna. Provider: Health PA, growth, second 7 700 Brianna Baez PO Box tri, unsp18 weeks Medical , 700 1522, gestation of [facility], , [facility] Dr GARCIA, 120, [place] 120, , Binh [place], RADHA, RADHA, tel: [phone]. , [place]. tel: tel: [phone] Crystal [place] Aug-0 Baez Referring In Womens 2-201 Brianna. Provider: Health PA, 7 700 Brianna Baez PO Box Medical , 700 1522, [facility] Dr [place]abell, [facility] Dr GARCIA, 120, [place] 120, , Binh [place], RADHA, [place], tel:[phone]. , [place]. tel: tel: [phone] Crystal [place] Pre-existing Farrukh-2 Baez Referring In Womens essential htn 7-201 Brianna. Provider: Health PA, comp , 7 700 Brianna Baez PO Box first [id number] Medical , 700 1522, weeks gestation [facility], of , [facility] Dr GARCIA, 120, [place] 120, , Binh [place], RADHA, [place], tel: [phone]. , [place]. tel: tel: [phone] [place] Supervision of Jan-1 Baez Referring In Womens other high risk 0-201 Brianna. Provider: Health PA, pregnancies, 7 700 Brianna Baez PO Box first Medical , 700 1522, trimesterPre-exis [facility] [place] [facility], ting essential , [facility] Dr GARCIA, htn comp 120, [place] 120, [id number], , first Binh [place], [place] trimester RADHA, RADHA, tel: [phone]. , [place]. tel: tel: [phone] [place] Supervision of Baez Referring In Womens other high risk 5-201 Brianna. Provider: Health PA, pregnancies, 7 700 Brianna Baez PO Box first Medical K, 700 1522, trimesterPre-exis [place] jay[address], [facility] Dr GARCIA, htn comp 120, [place] 120, [id number], , first Binh [place], trimesterPrevious RADHA, RADHA, tel: Low Transverse [phone]. C-SectionObesity , [place]. tel: complicating tel: [phone] , first [id number] trimesterEncntr screen for infections w sexl mode of transmissEncounte r for screening for oth infec/parastc diseasesEncounter for screening of mother Crystal Cárdenas Baez Referring In Womens ovarian 7-201 Brianna. 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 findingsPap Smear , [place]. tel: Screening, tel: [phone] CervixEncounter [phone] for removal of intrauterine contraceptive deviceEncounter for removal of intrauterine contraceptive deviceBody mass index (BMI) 50-59.9 , adult [facility] Sep-3 Baez In Womens 0-200 Brianna. Health PA, 9 700 PO [address] Medical [address], [place] [address] [place], [facility] [place], 120, , [place], tel: [phone] , [place]. tel: [phone] Family History Family Member Diagnosis Age At [...] Unknown Payers Payer name Insurance type Covered constitution party ID Authorization(s) BC Out Of State [id number] Social History Type Description Quantity Date Captured Alcohol Use Details No Caffeine Use Details Unknown Tobacco Use Status Smoking Status Former smoker Vital Signs Date / Height Weight BMI Pulse Blood Temperature Respiratory Body Head BMI Time: Rate Pressure Rate Surface Circumference percentile Area 288.70 51.1 142/82 2017 lbs 3 mm[Hg] 9:22 kg/m AM eter (2) Chief Complaint And [...] Complete OB Ultrasound > 14 Ordered Weeks ([id number]) Date Type Problem Goal Intervention Status Start [...]
--- OUTSIDE RECORDS SUMMARY | 2017-08-24 11:09 | External Medical Summary | Continuity of Care Document ---
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) - (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) w abnormal findings Pap Smear Screening, Cervix Encounter for removal of intrauterine contraceptive device Encounter for removal of intrauterine - contraceptive device Body mass index (BMI) 50-59.9 , adult Supervision of other high risk - pregnancies, first trimester Pre-existing essential htn comp - , first trimester Procedures Procedure Date Initial OB Visit No Charge - 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 Glycosylated hemoglobin assay Venpnctr fngr/heel/ear stick routne OB Prepayment Agreement Infct antign, chlamydia trac, ampl Neisseria Gonorrhoeae, Amplification OB Panel With An HIV Results Test Name Date and Time Measure Units Reference Range Abnormal Flag Comments Panel Description: OBSTETRIC PANEL WHITE BLOOD CELL 8.4 Thousand/uL 3.8-10.8 N COUNT 15:22:00 RED BLOOD CELL 4.00 Million/uL 3.80-5.10 N COUNT 15:22:00 HEMOGLOBIN 11.6 g/dL 11.7-15.5 L 15:22:00 HEMATOCRIT 34.2 % 35.0-45.0 L 15:22:00 MCV 85.5 fL 80.0-100.0 N 15:22:00 MCH 29.0 pg 27.0-33.0 N 15:22:00 MCHC 33.9 g/dL 32.0-36.0 N 15:22:00 RDW 13.9 % 11.0-15.0 N 15:22:00 PLATELET COUNT 290 Thousand/uL 140-400 N 15:22:00 MPV 9.8 fL 7.5-12.5 N 15:22:00 ABSOLUTE 5645 cells/uL 9696-2407 N NEUTROPHILS 15:22:00 ABSOLUTE 2192 cells/uL 850-3900 N LYMPHOCYTES 15:22:00 ABSOLUTE 487 cells/uL 200-950 N MONOCYTES 15:22:00 ABSOLUTE 42 cells/uL 15-500 N EOSINOPHILS 15:22:00 ABSOLUTE 34 cells/uL 0-200 N BASOPHILS 15:22:00 NEUTROPHILS 67.2 % N 15:22:00 LYMPHOCYTES 26.1 % N 15:22:00 MONOCYTES 5.8 % N 15:22:00 EOSINOPHILS 0.5 % N 15:22:00 BASOPHILS 0.4 % N 15:22:00 ANTIBODY SCREEN, NO ANTIBODIES N RBC W/REFL ID, 15:22:00 DETECTED Reference range TITER AND AG No antibodies detected This assay is a screening test for the detection of red blood cell antibodies. The test is not to be used for pretransfusion screening or for the medical management of an alloimmunized . ABO GROUP O 15:22:00 RH TYPE RH (D) 15:22:00 NEGATIVE RPR (DX) W/REFL NON-REACTIVE NON-REACTIV N TITER AND 15:22:00 E CONFIRMATORY TESTING HEPATITIS B NON-REACTIVE NON-REACTIV N SURFACE ANTIGEN 15:22:00 E RUBELLA ANTIBODY 2.43 index N Index (IGG) 15:22:00 Interpretation ----- <0.90 Not consistent with Immunity 0.90-0.99 Equivocal > or=1.00 Consistent with Immunity The presence of rubella IgG antibody suggests immunization or past or current infection withrubella virus.Test performed at [facility] [id number] [place] [address]Cbwzjeu r: NISHANT LANGLEY DO,MPH Panel Description: HIV 1/2 ANTIGEN/ANTIBODY,FOURTH GENERATION W/RFL HIV NON-REACTIVE NON-REACTIVE N HIV-1 antigen and HIV-1/HIV- 2 antibodies were AG/AB, 15:22:00 notdetected. There is no laboratory evidence of 4TH GEN HIVinfection. PLEASE NOTE: This information has been disclosed toyou from records whose confidentiality may beprotected by state law. If your state requires suchprotection, then the state law prohibits you frommaking any further disclosure of the informationwithout the specific written consent of the personto whom it pertains, or as otherwise permitted by law.A general authorization for the release of medical orother information is NOT sufficient for this purpose. For additional information please refer [email or web address](This link is being provided for informational/educational purposes only.) The performance of this assay has not been clinicallyvalidated in patients less than 2 years old. Test performed at [facility] [id number] [place] [address]Mmqoaacx: NISHANT LANGLEY DO,MPH Panel Description: Bacteria identified in Urine by Culture CULTURE, URINE, SEE NOTE CULTURE, URINE, ROUTINE MICRO ROUTINE 09:07:00 NUMBER: [id number] TEST STATUS: FINAL SPECIMEN SOURCE: URINE, CLEAN CATCH SPECIMEN QUALITY: ADEQUATE RESULT: Multiple organisms present, each less than 10,000 CFU/mL. These organisms, commonly found on external and internal genitalia, are considered to be colonizers. No further testing performed.REPORT COMMENT:RFASTING:UNKNOWNTest performed at [facility] [id number] [place] [address]Qadpduly: NISHANT LANGLEY DO,MPH Panel Description: CHLAMYDIA/N. GONORRHOEAE RNA, TMA CHLAMYDIA NOT DETECTED NOT DETECTED N TRACHOMATIS RNA, 15:17:00 TMA NEISSERIA NOT DETECTED NOT DETECTED N GONORRHOEAE RNA, 15:17:00 TMA [id number] SEE NOTE This test was 15:17:00 performed using the APTIMA COMBO2 Assay([employer] The analytical performance characteristics of this assay, when used to test SurePath specimens havebeen determined by [employer]vizor. Test performed at [facility] [id number] [place] [address]Idkolqvd: NISHANT LANGLEY DO,MPH Panel Description: COMPREHENSIVE METABOLIC PANEL GLUCOSE 93 mg/dL 65-99 N 08:54:00 Fasting reference interval UREA NITROGEN 7 mg/dL 7-25 N (BUN) 08:54:00 CREATININE 0.58 mg/dL 0.50-1.10 N 08:54:00 eGFR NON-AFR. 123 mL/min/1.7 > OR=60 N DJIBOUTIAN 08:54:00 3m2 eGFR 142 mL/min/1.7 > OR=60 N DJIBOUTIAN 08:54:00 3m2 BUN/CREATININE NOT APPLICABLE (calc) 6-22 RATIO 08:54:00 SODIUM 138 mmol/L 135-146 N 08:54:00 POTASSIUM 3.8 mmol/L 3.5-5.3 N 08:54:00 CHLORIDE 105 mmol/L 98-110 N 08:54:00 CARBON DIOXIDE 24 mmol/L 20-31 N 08:54:00 CALCIUM 8.9 mg/dL 8.6-10.2 N 08:54:00 PROTEIN, TOTAL 6.4 g/dL 6.1-8.1 N 08:54:00 ALBUMIN 3.7 g/dL 3.6-5.1 N 08:54:00 GLOBULIN 2.7 g/dL 1.9-3.7 N 08:54:00 (calc) ALBUMIN/GLOBULIN 1.4 (calc) 1.0-2.5 N RATIO 08:54:00 BILIRUBIN, TOTAL 0.6 mg/dL 0.2-1.2 N 08:54:00 ALKALINE 59 U/L 33-115 N PHOSPHATASE 08:54:00 AST 11 U/L 10-30 N 08:54:00 ALT 14 U/L 6-29 N Test performed 08:54:00 at [facility] [id number] [place] [address]Hqkjlj or: NISHANT LANGLEY DO,MPH Panel Description: CREATININE CLEARANCE CREATININE 0.58 mg/dL 0.50-1.10 N 08:54:00 eGFR NON-AFR. 123 mL/min/1.73m > OR=60 N DJIBOUTIAN 08:54:00 2 eGFR 142 mL/min/1.73m > OR=60 N DJIBOUTIAN 08:54:00 2 CREATININE, 24 2.12 g/24 h 0.63-2.50 N HOUR URINE 08:54:00 BODY SURFACE AREA 2.24 08:54:00 CREATININE 196 mL/min 75-115 H CLEARANCE 08:54:00 HEIGHT FEET 5 ft 08:54:00 HEIGHT INCHES 2 in 08:54:00 WEIGHT POUNDS 289 Test performed at 08:54:00 [facility] [id number] [place] [address]Dzizsacu : NISHANT LANGLEY DO,MPH Panel Description: CBC (INCLUDES DIFF/PLT) WHITE BLOOD CELL 7.7 Thousand/uL 3.8-10.8 N COUNT 08:54:00 RED BLOOD CELL 4.06 Million/uL 3.80-5.10 N COUNT 08:54:00 HEMOGLOBIN 11.7 g/dL 11.7-15.5 N 08:54:00 HEMATOCRIT 34.9 % 35.0-45.0 L 08:54:00 MCV 86.0 fL 80.0-100.0 N 08:54:00 MCH 28.8 pg 27.0-33.0 N 08:54:00 MCHC 33.5 g/dL 32.0-36.0 N 08:54:00 RDW 13.9 % 11.0-15.0 N 08:54:00 PLATELET COUNT 274 Thousand/uL 140-400 N 08:54:00 MPV 9.6 fL 7.5-12.5 N 08:54:00 ABSOLUTE 5729 cells/uL 8836-1519 N NEUTROPHILS 08:54:00 ABSOLUTE 1532 cells/uL 850-3900 N LYMPHOCYTES 08:54:00 ABSOLUTE MONOCYTES 347 cells/uL 200-950 N 08:54:00 ABSOLUTE 69 cells/uL 15-500 N EOSINOPHILS 08:54:00 ABSOLUTE BASOPHILS 23 cells/uL 0-200 N 08:54:00 NEUTROPHILS 74.4 % N 08:54:00 LYMPHOCYTES 19.9 % N 08:54:00 MONOCYTES 4.5 % N 08:54:00 EOSINOPHILS 0.9 % N 08:54:00 BASOPHILS 0.3 % N Test performed at 08:54:00 [facility] [id number] [place] [address]Zeioqwqs : NISHANT LANGLEY DO,MPH Panel Description: PROTEIN, TOTAL, 24 HOUR URINE (W/O CREATININE) PROTEIN, TOTAL, 120 mg/24 h <150 N TOTAL URINE VOLUME: 24 HR UR 08:54:00 1500/24REPORT COMMENT:FASTING:NOTest performed at [facility] [id number] [facility]ITALRxAppsUNIVERSITY [facility] M[facility] [place] [address]Ocgsxtwu: NISHANT LANGLEY DO,MPH Panel Description: Hemoglobin A1c/Hemoglobin.total in Blood HEMOGLOBIN A1c 4.8 % of total <5.7 N For the purpose of 15:47:00 Hgb screening for the presence ofdiabetes: <5.7% Consistent with the absence of diabetes5.7-6.4% Consistent with increased risk for diabetes (prediabetes)> or=6.5% Consistent with diabetes This assay result is consistent with a decreased riskof diabetes. Currently, no consensus exists regarding use ofhemoglobin A1c for diagnosis of diabetes in children. According to [place] Diabetes Association (ADA)guidelines, hemoglobin A1c <7.0% represents optimalcontrol in non- diabetic patients. Differentmetrics may apply to specific patient populations. Standards of Medical Care in Diabetes(ADA). Test performed at [facility] [id number] [place] [address]Buozpmps: NISHANT LANGLEY DO,MPH Advance Directives Directive Yes / No Effective Date File Name Unknown Encounters Encounter Practice Location Reason(s) Diagnoses Date Provider Care Team Description For Visit Members Crystal [place] Supervision of Baez Referring In Womens other high risk 0-201 Brianna. Provider: Health PA, pregnancies, first 7 Brianna Melendrezb [facility] [address] 15[facility], ing essential htn [facility], [facility] , Dr, [facility] Dr GARCIA, first trimester 120, [place] 120, , [place], RADHA GARCIA, tel:[phone]. , [place]. tel: tel: [phone] [facility] Supervision of Jan-0 Baez Referring In Womens other high risk 5-201 Brianna. Provider: Health PA, pregnancies, first 7 700 Brianna Abez PO Box trimesterPre-exist Medical K, 700 1522, ing essential htn [facility] , Dr, [facility] Dr GARCIA, first 120, [place] 120, , trimesterPrevious [place], Low Transverse RADHA, RADHA, tel: C-SectionObesity [phone]. complicating , [place]. tel: , first tel: [phone] trimesterEncntr [phone] screen for infections w sexl mode of transmissEncounter for screening for oth infec/parastc diseasesEncounter for screening of mother [facility] Polycystic ovarian May- Baez Referring In Womens syndromeMorbid 7-201 Brianna. Provider: Health PA, (severe) obesity 6 700 Brianna Baez PO Box due to excess Medical K, 700 1522, caloriesEncntr for [facility], hyperion administrator exam (general) , [facility] Dr GARCIA, (routine) w 120, [place] 120, , abnormal [place], findingsPap Smear RADHA GARCIA, tel: Screening, [phone]. CervixEncounter , [place]. tel: for removal of tel: [phone] intrauterine [phone] contraceptive deviceEncounter for removal of intrauterine contraceptive deviceBody mass index (BMI) 50-59.9 , adult [facility] Sep-3 Baez In Womens 0-200 Brianna. Health EPHRAIM, 9 700 [address], [place], , [facility] [place], 120, , [place], [place], tel:[phone] , [place]. tel:[phone] Family History Family Member Diagnosis Age At [...] Unknown Payers Payer name Insurance type Covered libertarian ID Authorization(s) BCBS Out Of State [id number] Social History Type Description Quantity Date Captured Alcohol Use Details Caffeine Use Details Unknown 1 cup per day Tobacco Use Status Ex-cigarette smoker Smoking Status Former smoker Non-Smoking Tobacco Use : No Details Available : No Details Available Details Vital Signs Date / Height Weight BMI Pulse Blood Temperature Respiratory Body Head BMI Time: Rate Pressure Rate Surface Circumference percentile Area 289.30 51.2 140/90 lbs 4 mm[Hg] 2:34 kg/m PM eter (2) Chief Complaint And Reason For Visit Unknown Chief Complaint And Reason For Visit Reason For Referral Reason For Referral Unknown Plan Of Care Date Type Action Status Goal Lifestyle education regarding diet completed Appointment Virginia Rosas BOOKED Future Order: Lab [...]
--- OUTSIDE RECORDS SUMMARY | 2017-08-24 11:09 | External Medical Summary | Continuity of Care Document ---
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 Pap Smear Screening, Cervix Encounter for removal of intrauterine contraceptive device Encounter for removal of intrauterine - contraceptive device Body mass index (BMI) 50-59.9 , adult Pre-existing essential htn comp - , first trimester 13 weeks gestation of - Procedures Procedure Date CBC, Automated Hemogram Metabolic panel, comprehensive Creatinine clearance test ASSAY OF PROTEIN, URINE Venpnctr fngr/heel/ear stick routne Urine Culture Cult, bactr, ident isolate, urine Results Test Name Date and Time Measure Units Reference Range Abnormal Flag Comments Unknown Advance Directives Directive Yes / No Effective Date File Name Unknown Encounters Encounter Practice Location Reason(s) Diagnoses Date Provider Care Team Description For Visit Members Crystal [place] Pre-existing Jan-2 Baez Referring In Womens essential htn comp 7-201 Brianna. Provider: Health EPHRAIM, , first 7 700 Brianna Baez PO Box [id number] weeks [facility], 700 1522, gestation of [facility], , [facility] Dr GARCIA, 120, [place] 120, , [place], RADHA GARCIA, tel: [phone]. [id number] , [place]. tel: tel: [phone] Crystal [place] Supervision of Jan-1 Baez Referring In Womens other high risk 0-201 Brianna. Provider: Health EPHRAIM, pregnancies, first 7 700 Brianna Baez PO Box trimesterPre-exist [facility], 700 1522, ing essential htn [facility] , , [facility] Dr GARCIA, first trimester 120, [place] 120, , [place], RADHA GARCIA, tel: [phone]. , [place]. tel: tel: [phone] Crystal [place] Supervision of Jan-0 Baez Referring In Womens other high risk 5-201 Brianna. Provider: Health EPHRAIM, pregnancies, first 7 700 Brianna Baez PO Box trimesterPre-exist [facility], 700 1522, ing essential htn [facility] , , [facility] Dr GARCIA, first 120, [place] 120, , trimesterPrevious [place], Low Transverse [place], [place], tel: C-SectionObesity [phone]. complicating , [place]. tel: , first tel: [phone] trimesterEncntr [phone] screen for infections w sexl mode of transmissEncounter for screening for oth infec/parastc diseasesEncounter for screening of mother Crystal [place] Polycystic ovarian November- Baez Referring In Womens syndromeMorbid 7-201 Brianna. Provider: Health PA, (severe) obesity 6 700 Brianna Baez PO Box due to excess Medical K, 700 1522, caloriesEncntr for [facility], dobie worker exam (general) , [place] [facility] Dr GARCIA, (routine) w 120, [place] 120, [phone], abnormal [place], findingsPap Smear [place], [place], tel: Screening, [phone]. CervixEncounter , [place]. tel: for removal of tel: [phone] intrauterine [phone] contraceptive deviceEncounter for removal of intrauterine contraceptive deviceBody mass index (BMI) 50-59.9 , adult [facility] Sep-3 Baez In Womens 0-200 Brianna. Health PA, 9 700 [address], Center Dr [place], [place], 120, , [place], tel: [phone] , [place]. tel: [phone] Family History Family Member Diagnosis Age At [...] Unknown Payers Payer name Insurance type Covered alliance party ID Authorization(s) BCBS Out Of State [id number] Social History Type Description Quantity Date Captured [...]
--- OUTSIDE RECORDS SUMMARY | 2017-08-24 11:09 | External Medical Summary | Continuity of Care Document ---
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) w abnormal findings [...] , third trimester Previous Low Transverse - 34 weeks gestation of - Pre-existing essential htn comp - , first trimester 13 weeks gestation of - Pre-existing essential htn comp - , third trimester 32 weeks gestation of - Pre-existing essential htn comp - , third trimester Previous Low Transverse - 38 weeks gestation of - Pre-existing essential htn comp - , third trimester Maternal care for excess growth, - third trimester, unsp Obesity complicating , third - trimester 29 weeks gestation of - Previous Low Transverse - 37 weeks gestation of - Maternal care for excess growth, - second tri, unsp 18 weeks gestation of - Procedures Procedure Date OB Visit No 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 Cult, pathgnc orgnsm, screen Results Test Name Date and Time Measure Units Reference Range Abnormal Flag Comments Panel Description: STREPTOCOCCUS, GROUP B CULTURE STREPTOCOCCUS, GROUP B 09:00:00 SEE NOTE STREPTOCOCCUS, GROUP B CULTURE CULTURE MICRO NUMBER: [id number] TEST STATUS: FINAL SPECIMEN SOURCE: VAGINAL/ANORECTAL SPECIMEN QUALITY: ADEQUATE RESULT: No group B Streptococcus isolatedTest performed at [facility] [id number] [place] [address]Fkjrktcl: NISHANT LANGLEY DO,MPH Advance Directives Directive Yes / No Effective Date File Name Unknown Encounters Encounter Practice Location Reason(s) Diagnoses Date Provider Care Team Description For Visit Members [facility] Pre-existing Baez Referring In Womens essential htn 6-201 Brianna. Provider: Zack YE, comp , 8 700 Brianna Baez PO Box [facility], 700 1522, trimesterPrevious [facility], Low Transverse , [place] [facility] Dr GARCIA, [id number] weeks 120, [place] 120, [id number], gestation of Binh Purcell, RADHA GARCIA, tel: [phone]. [id number] , [place]. tel: tel: [phone] [facility] Previous Low Jul- Baez Referring In Womens Transverse 9-201 Brianna. Provider: Zack YE, C-[id number] weeks 8 700 Brianna Baez PO Box gestation [facility] Medical [facility], 700 1522[facility] Dr GARCIA, 120, [place] 120, [id number], Binh Pur[place], [place], RADHA, tel: [phone]. , [place]. tel: tel: [phone] [facility] Supervision of Marcos-0 Baez Referring In Womens other high risk 2-201 Brianna. Provider: Health PA, pregnancies, 8 700 Brianna Baez PO Box [facility], 700 1522, [facility], [facility] Dr GARCIA, htn comp 120, [place] 120, [id number], , third Binh Purcell, [place] trimesterObesity [place], RADHA, tel: complicating [phone]. , third , [place]. tel: [id number] weeks tel: [phone] gestation of [id number] [facility] Supervision of Dec-2 Baez Referring In Womens other high risk 0-201 Brianna. Provider: Health PA, pregnancies, 7 700 Brianna Baez PO Box [facility], 700 1522, [facility] jay[facility] Hung Dr, [facility] Dr GARCIA, htn comp 120, [place] 120, , , third Binh Purcell, [place] trimesterPrevious RADHA GARCIA, tel: Low Transverse [phone]. C-SectionObesity , [place]. tel: complicating tel:[phone] , third [phone] trimester [facility] Supervision of Dec-2 Baez Referring In Womens Ultrasound other high risk 0-201 Brianna. Provider: Health PA, pregnancies, 7 700 Brianna Baez PO Box [facility], 700 1522, trimesterPre-[facility] jaylen Hung Dr, [facility] Dr GARCIA, htn comp 120, [place] 120, [id number], , third Binh Purcell, [place] trimesterPrevious RADHA RADHA, tel:2 Low Transverse [phone]. C-Mhxsvyo74 weeks , [place]. tel: gestation of tel: [phone] [facility] Pre-existing Dec-0 Baez Referring In Womens essential htn 5-201 Brianna. Provider: Health EPHRAIM, comp , 7 700 Brianna Baez PO Box third Medical K, 700 1522, weeks gestation [facility], of Dr, [facility] Dr GARCIA, 120, [place] 120, [id number], Binh Purcell, RADHA GARCIA, tel: [phone]. , [place]. tel: tel:[phone] [facility] Supervision of Nov-2 Baez Referring In Womens other high risk 0-201 Brianna. Provider: Health PA, pregnancies, 7 700 Brianna Baez PO Box third Medical K, 700 1522, trimesterPre-exis [facility], ting essential , [facility] Dr GARCIA, htn comp 120, [place] 120, , , third Binh Purcell, trimesterPrevious RADHA GARCIA, tel: Low Transverse [phone]. [facility] [place]. tel: complicating tel:[phone] , third [phone] trimester [facility] Pre-existing Nov-2 Baez Referring In Womens Ultrasound essential htn 0-201 Brianna. Provider: Health EPHRAIM, comp , 7 700 Brianna Baez PO Box third Medical K, 700 1522, trimesterMaternal [facility], care for excess , [facility] Dr GARCIA, growth, 120, [place] 120, [id number], third trimester, Binh Purcell, unspObesity RADHA GARCIA, tel: complicating [phone]. , third , [place]. tel: [email or web address] weeks tel:4153 gestation of [id number] [facility] Pre-existing Nov-0 Baez Referring In Womens essential htn 2-201 Brianna. Provider: Health EPHRAIM, comp , 7 700 Brianna Baez PO Box second Medical K, 700 1522, trimesterPrevious [facility], Low Transverse , [facility] Dr GARCIA, C-[id number] weeks 120, [place] 120, [id number], gestation of Binh [place], [place], RADHA, tel: [phone]. , [place]. tel: tel: [phone] Crystal Purcell Supervision of Oct-1 Baez Referring In Womens other high risk 0-201 Brianna. Provider: Health EPHRAIM, pregnancies, 7 700 Brianna Baez PO Box [facility], 700 1522, [facility]Pre[facility]is [facility], [facility] Dr GARCIA, htn comp 120, [place] 120, [id number], , second Binh Purcell, [place] weeks RADHA GARCIA, tel: gestation of [phone]. , [place]. tel: tel: [phone] Crystal Purcell Supervision of Sep-1 Baez Referring In Womens other high risk 3-201 Brianna. Provider: Zack YE, pregnancies, 7 700 Brianna Baez PO Box [facility], 700 1522, [facility], [facility] Dr GARCIA, htn comp 120, [place] 120, , , second Binh Purcell, [id number] weeks RADHA GARCIA, tel: gestation of [phone]. , [place]. tel: tel: [phone] Crystal Purcell Supervision of Sep-1 Baez Referring In Womens Ultrasound other high risk 3-201 Brianna. Provider: Zack YE, pregnancies, 7 700 Brianna Baez PO Box [facility], 700 1522, trimesterMaternal [facility], care for excess Dr, [facility] Dr GARCIA, growth, 120, [place] 120, [id number], second tri, Binh Purcell, [place] unsp20 weeks RADHA GARCIA, tel:+ gestation of [phone]. , [place]. tel: tel: [phone] Crystal Purcell Maternal care for Aug-2 Baez Referring In Womens excess 9-201 Brianna. Provider: Zack YE, growth, second 7 700 Brianna Baez PO Box tri, unsp18 weeks Medical , 700 1522, gestation of [facility], , [facility] Dr GARCIA, 120, [place] 120, [id number], Binh Purcell, RAD[place], [place], tel: [phone]. , [place]. tel: tel: [phone] Crystal Purcell Aug-0 Baez Referring In Womens 2-201 Brianna. Provider: Health PA, 7 700 Brianna Baez PO Box Medical , 700 1522, [facility] Dr Anabell, [facility] Dr GARCIA, 120, [place] 120, [id number], Binh Purcell, RAD[place], [place], tel: [phone]. , [place]. tel: tel: [phone] Crystal Purcell Pre-existing Farrukh-2 Baez Referring In Womens essential htn 7-201 Brianna. Provider: Health EPHRAIM, comp , 7 700 Brianna Baez PO Box first [id number] Medical , 700 1522, weeks gestation [facility], of , [facility] Dr GARCIA, 120, [place] 120, [id number], Binh [place], [place], [place], tel: [phone]. , [place]. tel: tel: [phone] Crystal Purcell Supervision of Jan-1 Baez Referring In Womens other high risk 0-201 Brianna. Provider: Health PA, pregnancies, 7 700 Brianna Baez PO Box first Medical , 700 1522, trimesterPre-exis [facility], ting essential , [facility] Dr GARCIA, htn comp 120, [place] 120, [id number], , first Binh Purcell, trimester [place], tel: [phone]. , [place]. tel: tel: [phone] Crystal Purcell Supervision of Jan-0 Baez Referring In Womens other high risk 5-201 Brianna. Provider: Health PA, pregnancies, 7 700 Brianna Baez PO Box first Medical , 700 1522, trimesterPre-exis [facility] Anabell ting essential , [facility] Dr GARCIA, htn comp 120, [place] 120, [id number], , first Binh Purcell, trimesterPrevious RADHA GARCIA, tel:+2 Low Transverse [phone]. C-SectionObesity , [place]. tel: complicating tel: [phone] , first [phone] trimesterEncntr screen for infections w sexl mode of transmissEncounte r for screening for oth infec/parastc diseasesEncounter for screening of mother [facility] Polycystic November- Baez Referring In Womens ovarian 7-201 Brianna. Provider: Zack YE, syndromeMorbid 6 700 Brianna Baez PO Box (severe) obesity Medical , 700 1522, due to excess [facility] [place], caloriesEncntr , [facility] Dr GARCIA, for ramp jockey exam 120, [place] 120, , (general) Binh Purcell (routine) w RADHA GARCIA, tel: abnormal [phone]. findingsPap Smear , [place]. tel: Screening, tel: [phone] CervixEncounter [phone] for removal of intrauterine contraceptive deviceEncounter for removal of intrauterine contraceptive deviceBody mass index (BMI) 50-59.9 , adult [facility] Sep-3 Baez In Womens 0-200 Brianna. Health EPHRAIM, 9 700 PO Box Medical [address], [address] Anabell, [place], 120, [id number], [place] RADHA Purcell, tel: [phone] , [place]. tel: [phone] Family History Family Member Diagnosis Age At [...] party ID Authorization(s) BCBS Out [place] [id number] [employer] [place] BL [id number] [place] [place] BL [id number] [place] [place] [id number] Social History Type Description Quantity Date Captured Alcohol Use Details No Caffeine Use Details Unknown Tobacco Use Status Smoking Status Former smoker Vital Signs Date / Height Weight BMI Pulse Blood Temperature Respiratory Body Head BMI Time: Rate Pressure Rate Surface Circumference percentile Area 297.70 52.7 128/79 2018 lbs 3 mm[Hg] 8:41 kg/m AM eter (2) Chief Complaint And Reason For Visit Unknown Chief Complaint And Reason For Visit Reason For Referral Reason For Referral Unknown Plan Of Care Date Type Action Status Goal Lifestyle education regarding completed diet Appointment Virginia Rosas KEPT Appointment Virginia Rosas [facility] R C/S BOOKED Future Order: Lab Order Pap Smear With HPV Reflex If Ordered ASCUS ([id number]) Future Order: Radiology Order Complete OB Ultrasound > 14 Ordered Weeks ([id number]) Future Order: Radiology Order Ultrasound OB Follow-up ([id number]) Ordered Future Order: Radiology Order Ultrasound OB Follow-up ([id number]) Ordered Date Type Problem Goal Intervention Status [...]
--- OUTSIDE RECORDS SUMMARY | 2017-08-24 11:09 | External Medical Summary | Continuity of Care Document ---
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 Provider: Health EPHRAIM, C-[id number] weeks 8 700 Brianna Baez PO Box gestation of [facility], 700 1522, Center [address], [facility] Dr GARCIA, 120, [place] 120, , [facility], [facility], [place], tel: [phone]. , [place]. tel: tel: [phone] [facility] Supervision of Baez Referring In Womens other high risk 2-201 Brianna. Provider: Health PA, pregnancies, 8 700 Brianna Baez PO Box [facility], 700 1522, [facility] [address] [facility], [facility] Dr GARCIA, htn comp 120, [place] 120, [id number], , third Binh [facility] trimesterObesity RADHA, RADHA, tel: complicating [phone]. , third , [place]. tel: [id number] weeks tel: [phone] gestation of [id number] [facility] Supervision of Baez Referring In Womens other high risk 0-201 Brianna. Provider: Health PA, pregnancies, 7 700 Brianna Baez PO Box third [facility], 700 1522, [facility] Dr, [facility] Dr GARCIA, htn comp 120, [place] 120, [id number], , third Binh Purcell, [place] trimesterPrevious RADHA GARCIA, tel:+2 Low Transverse [phone]. C-SectionObesity , [place]. tel: complicating tel: [phone] , third [phone] trimester [facility] Supervision of Dec-2 Baez Referring In Womens Ultrasound other high risk 0-201 Brianna. Provider: Health PA, pregnancies, 7 700 Brianna Baez PO Box third Medical K, 700 1522, trimesterPre[facility]exis [facility], [facility] Dr GARCIA, htn comp 120, [place] 120, [id number], , third Binh Purcell, [place] trimesterPrevious RADHA GARCIA, tel:+2 Low Transverse [phone]. C-Ppdgvxz48 weeks , [place]. tel: gestation of tel: [phone] [facility] Pre-existing Dec-0 Baez Referring In Womens essential htn 5-201 Brianna. Provider: Health PA, comp , 7 700 Brianna Baez PO Box third [id number] Medical K, 700 1522, weeks gestation Center [facility] [place], of , [facility] Dr GARCIA, 120, [place] 120, [id number], Binh Purcell, [place] RADHA GARCIA, tel:+ [phone]. , [place]. tel: tel: [phone] Crystal Purcell Supervision of Nov-2 Baez Referring In Womens other high risk 0-201 Brianna. Provider: Health PA, pregnancies, 7 700 Brianna Baez PO Box third Medical K, 700 1522, trimesterPre-exis [facility] jaylen Hung Dr, [facility] Dr GARCIA, htn comp 120, [place] 120, [id number], , third Binh Purcell, [place] trimesterPrevious RADHA GARCIA, tel:+2 Low Transverse [phone]. C-SectionObesity , [place]. tel: complicating tel: [phone] , third [phone] trimester [facility] Pre-existing Nov-2 Baez Referring In Womens Ultrasound essential htn 0-201 Brianna. Provider: Health PA, comp , 7 700 Brianna Baez PO Box third Medical K, 700 1522, trimesterMaternal [facility], care for excess Dr, [facility] Dr GARCIA, growth, 120, [place] 120, [id number], third trimester, Binh Purcell, unspObesity RADHA GARCIA, tel:+ complicating [phone]. , third , [place]. tel: [id number] weeks tel: [phone] gestation of [id number] [facility] Pre-existing Nov-0 Baez Referring In Womens essential htn 2-201 Brianna. Provider: Health EPHRAIM, comp , 7 700 Brianna Baez PO Box second Medical K, 700 1522, trimesterPrevious [facility], Low Transverse , [facility] Dr GARCIA, C-Irgfweh75 weeks 120, [place] 120, , gestation of Binh Purcell, [place] RADHA GARCIA, tel: [phone]. , [place]. tel: tel: [phone] Crystal Purcell Supervision of Apr- Baez Referring In Womens other high risk 0-201 Brianna. Provider: Health PA, pregnancies, 7 700 Brianna Baez PO Box second Medical K, 700 1522, trimesterPre-exis [facility] [place], jaylen [address] Dr, [facility] Dr GARCIA, htn comp 120, [place] 120, [id number], , second Binh Purcell, [place] [id number] weeks RADHA GARCIA, tel: gestation of [phone]. , [place]. tel: tel: [phone] Crystal Purcell Supervision of Sep- Baez Referring In Womens other high risk 3-201 Brianna. Provider: Health PA, pregnancies, 7 700 Brianna Baez PO Box second Medical K, 700 1522, trimesterPre-exis [facility] [place], jaylen [address] Dr, [facility] Dr GARCIA, htn comp 120, [place] 120, [id number], , second iBnh Purcell, [id number] weeks RADHA GARCIA, tel: gestation of [phone]. , [place]. tel: tel: [phone] Crystal Purcell Supervision of Sep-1 Baez Referring In Womens Ultrasound other high risk 3-201 Brianna. Provider: Zack YE, pregnancies, 7 700 Rbianna Baez PO Box second Medical , 700 1522, trimesterMaternal [facility], care for excess , [facility] Dr GARCIA, growth, 120, [place] 120, , second paul, Binh Purcell, [place] unsp20 weeks RADHA GACRIA, tel: gestation of [phone]. , [place]. tel: tel: [phone] Crystal Purcell Maternal care for Aug- Baez Referring In Womens excess 9-201 Brianna. Provider: Zack YE, growth, second 7 700 Brianna Baez PO Box tri, unsp18 weeks Medical , 700 1522, gestation of [facility], , [facility] Dr GARCIA, 120, [place] 120, [id number], Binh Purcell, RADHA GARCIA, tel: [phone]. , [place]. tel: tel: [phone] Crystal Purcell Aug-0 Baez Referring In Womens 2-201 Brianna. Provider: Zack YE, 7 700 Brianna Baez PO Box Medical , 700 1522, [place] [address], [facility] Dr GARCIA, 120, [place] 120, [id number], Binh Purcell, [place] RADHA GARCIA, tel: [phone]. , [place]. tel: tel: [phone] Crystal Purcell Pre-existing Farrukh-2 Baez Referring In Womens essential htn 7-201 Brianna. Provider: Zack YE, comp , 7 700 Brianna Baez PO Box first [id number] Medical , 700 1522, weeks gestation [facility], of , [facility] Dr GARCIA, 120, [place] 120, , Binh Purcell, [place] RADHA GARCIA, tel: [phone]. , [place]. tel: tel:[phone] Crystal Purcell Supervision of Baez Referring In Womens other high risk 0-201 Brianna. Provider: Health PA, pregnancies, 7 700 Brianna Baez PO Box [facility], 700 1522, trimesterPre-exis [facility] jaylen Hung Dr, [facility] Dr GARCIA, htn comp 120, [place] 120, , , first Binh Purcell, [place] trimester RADHA, RADHA, tel: [phone]. , [place]. tel: tel: [phone] Crystal Purcell Supervision of 0 Baez Referring In Womens other high risk 5-201 Brianna. Provider: Health PA, pregnancies, 7 700 Brianna Baez PO Box [facility], 700 1522, trimesterPre-exis [facility] jaylen Hung Dr, [facility] Dr GARCIA, htn comp 120, [place] 120, , , first Binh Purcell, [place] trimesterPrevious RADHA GARCIA, tel: Low Transverse [phone]. C-SectionObesity , [place]. tel: complicating tel:53 , first [phone] trimesterEncntr screen for infections w sexl mode of transmissEncounte r for screening for oth infec/parastc diseasesEncounter for screening of mother Crystal Purcell Polycystic November- Baez Referring In Womens ovarian 7-201 Brianna. Provider: Health PA, syndromeMorbid 6 700 Brianna Baez PO Box (severe) obesity [facility], 700 1522, due to excess [place] Joaquina Hung caloriesEncchela Rice, [facility] Dr GARCIA, for treasury specialist exam 120, [place] 120, , (general) Binh Purcell, (routine) w RADHA GARCIA, tel: abnormal [phone]. findingsPap Smear , [place]. tel:+[phone] Screening, tel: [phone] CervixEncounter [phone] for removal of intrauterine contraceptive deviceEncounter for removal of intrauterine contraceptive deviceBody mass index (BMI) 50-59.9 , adult [facility] Sep-3 Baez In Womens 0-[address] [facility], 9 700 PO Box Medical [address], [place] Dr Anabell, [place], 120, [id number], [place], [place], tel:[phone] 531981 , . tel: [phone] Family History Family Member Diagnosis Age At [...] older Payers Payer name Insurance type Covered democrat ID Authorization(s) BCBS Out Of [place] BL [id number] BCBS Out [place] BL [id number] BCBS Out Of [place] BL [id number] BCBS Out [place] BL [id number] Social History Type Description Quantity Date Captured Alcohol Use Details No Caffeine Use Details Unknown Tobacco Use Status Smoking Status Former smoker Vital Signs Date / Height Weight BMI Pulse Blood Temperature Respiratory Body Head BMI Time: Rate Pressure Rate Surface Circumference percentile Area 300.10 53.1 137/ -2017 lbs 6 mm[Hg] 9:11 kg/m AM eter (2) Chief Complaint And Reason For Visit Unknown Chief Complaint And Reason For Visit Reason For Referral Reason For Referral Unknown Plan Of Care Date Type Action Status Goal Lifestyle education regarding completed diet Appointment Virginia Rosas BOOKED Appointment Virginia Rosas BOOKED Appointment Virginia Rosas [facility] R C/S BOOKED Future Order: Lab Order Pap Smear With HPV Reflex If Ordered ASCUS (WPMPap1) Future Order: Radiology Order Complete OB Ultrasound > 14 Ordered Weeks ([id number]) Future Order: Radiology Order Ultrasound OB Follow-up ([id number]) Ordered Future Order: Radiology Order Ultrasound OB Follow-up ([id number]) Ordered Date Type Problem Goal Intervention Status [...]
--- OUTSIDE RECORDS SUMMARY | 2017-08-24 11:09 | External Medical Summary | Continuity of Care Document ---
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 Provider: Health EPHRAIM, C-[id number] weeks 8 700 Brianna Baez PO Box gestation of [facility], [address] 1522, [place] [address], [facility] Dr GARCIA, 120, [place] 120, [id number], [facility], [place], RADHA, tel: [phone]. , [place]. tel: tel: [phone] Associates [facility] Supervision of Baez Referring In Womens other high risk 2-201 Brianna. Provider: Health PA, pregnancies, 8 700 Brianna Baez PO Box third [facility], 700 1522, [facility], [facility] Dr GARCIA, htn comp 120, [place] 120, [id number], , third Binh [place], trimesterObesity RADHA, RADHA, tel: complicating [phone]. , third , [place]. tel: tyghcqqlx11 weeks tel: [phone] gestation of [id number] [facility] Supervision of Baez Referring In Womens other high risk 0-201 Brianna. Provider: Health PA, pregnancies, 7 700 Brianna Baez PO Box third [facility], 700 1522, [facility] j[address]len [address], [facility] Dr GARCIA, htn comp 120, [place] 120, [id number], , third Binh [place], [place] trimesterPrevious RADHA GARCIA, tel:+2 Low Transverse [phone]. C-SectionObesity , [place]. tel: complicating tel: [phone] , third [id number] trimester [facility] Supervision of Dec-2 Baez Referring In Womens Ultrasound other high risk 0-201 Brianna. Provider: Health PA, pregnancies, 7 700 Brianna Baez PO Box third Medical K, 700 1522, trimesterPre-exis [facility] jaylen [address], [facility] Dr GARCIA, htn comp 120, Bah[place] 120, [id number], , third Binh [place], [place] trimesterPrevious RADHA GARCIA, tel:+2 Low Transverse [phone]. C-Djqadeh10 weeks , [place]. tel: gestation of tel: [phone] [facility] Pre-existing Dec-0 Baez Referring In Womens essential htn 5-201 Brianna. Provider: Health PA, comp , 7 700 Brianna Baez PO Box third [id number] Medical K, 700 1522, weeks gestation [facility] [place], of , [facility] Dr GARCIA, 120, Bahman 120, [id number], Binh [place], [place] RADHA GARCIA, tel:[phone]. , [place]. tel: tel: [phone] [facility] Supervision of Nov-2 Baez Referring In Womens other high risk 0-201 Brianna. Provider: Health PA, pregnancies, 7 700 Brianna Baez PO Box third Medical K, 700 1522, trimesterPre-exis [facility] jaylen Hung Dr, [facility] Dr GARCIA, htn comp 120, Bah[place] 120, [id number], , third Binh [place], [place] trimesterPrevious RADHA GARCIA, tel:+2 Low Transverse [phone]. C-SectionObesity , [place]. tel: complicating tel: [phone] , third [id number] trimester [facility] Pre-existing Nov-2 Baez Referring In Womens Ultrasound essential htn 0-201 Brianna. Provider: Health PA, comp , 7 700 Brianna Baez PO Box third Medical K, 700 1522, trimesterMaternal [facility], care for excess , [facility] Dr GARCIA, growth, 120, Bah[place] 120, [id number], third trimester, Bnih [place], unspObesity RADHA GARCIA, tel: complicating [phone]. , third , [place]. tel: weeks tel:4153 gestation of [phone] [facility] Pre-existing Nov-0 Baez Referring In Womens essential htn 2-201 Brianna. Provider: Health EPHRAIM, comp , 7 700 Brianna Baez PO Box second Medical K, 700 1522, trimesterPrevious [facility], Low Transverse , [facility] Dr GARCIA, C-Syqasre31 weeks 120, Bah[place] 120, , gestation of Binh [place], [place] RADHA GARCIA, tel: [phone]. , [place]. tel: tel: [phone] Crystal [place] Supervision of Apr- Baez Referring In Womens other high risk 0-201 Brianna. Provider: Health PA, pregnancies, 7 700 Brianna Baez PO Box second Medical K, 700 1522, trimesterPre-exis [facility] [place], j[address]len [address], [facility] Dr GARCIA, htn comp 120, Bah[place] 120, [id number], , second Binh [place], [place] [id number] weeks RADHA GARCIA, tel: gestation of [phone]. , [place]. tel: tel: [phone] Crystal [place] Supervision of Sep- Baez Referring In Womens other high risk 3-201 Brianna. Provider: Health PA, pregnancies, 7 700 Brianna Baez PO Box second Medical K, 700 1522, trimesterPre-exis [facility], j[address]len [address] Dr, [facility] Dr GARCIA, htn comp 120, Bah[place] 120, , , second Binh [place], [place] [id number] weeks RADHA GARCIA, tel: gestation of [phone]. , [place]. tel: tel: [phone] Crystal [place] Supervision of Sep-1 Baez Referring In Womens Ultrasound other high risk 3-201 Brianna. Provider: Zack YE, pregnancies, 7 700 Brianna Baez PO Box second Medical , 700 1522, trimesterMaternal [facility], care for excess , [facility] Dr GARCIA, growth, 120, Bah[place] 120, , second paul, Binh [place], [place] unsp20 weeks RADHA GARCIA, tel: gestation of [phone]. , [place]. tel: tel: [phone] Crystal [place] Maternal care for Aug- Baez Referring In Womens excess 9-201 Brianna. Provider: Zack YE, growth, second 7 700 Brianna Baez PO Box tri, unsp18 weeks Medical , 700 1522, gestation of [facility], , [facility] Dr GARCIA, 120, Bahman 120, , Binh [place], RADHA GARCIA, tel: [phone]. , [place]. tel: tel: [phone] Crystal [place] Aug-0 Baez Referring In Womens 2-201 Brianna. Provider: Zack YE, 7 700 Brianna Baez PO Box Medical , 700 1522, [facility] Dr Anabell, [facility] Dr GARCIA, 120, Bahman 120, , Binh [place], [place] RADHA, RADHA, tel: [phone]. , [place]. tel: tel: [phone] Crystal [place] Pre-existing Farrukh-2 Baez Referring In Womens essential htn 7-201 Brianna. Provider: Zack YE, comp , 7 700 Brianna Baez PO Box first [id number] Medical , 700 1522, weeks gestation [facility], of , [facility] Dr [place], 120, [place] 120, , Bin[place], [place], RADHA, tel: [phone]. , [place]. tel: tel: [phone] Crystal [place] Supervision of Baez Referring In Womens other high risk 0-201 Brianna. Provider: Health PA, pregnancies, 7 700 Brianna Baez PO Box [facility], 700 1522, trimesterPre-exis [facility] jaylen Hung Dr, [facility] Dr GARCIA, htn comp 120, Bah[place] 120, , , first Binh [place], [place] trimester RADHA, RADHA, tel:[phone]. , [place]. tel: tel: [phone] Crystal [place] Supervision of Jan-0 Baez Referring In Womens other high risk 5-201 Brianna. Provider: Health PA, pregnancies, 7 700 Brianna Baez PO Box [facility], 700 1522, trimesterPre-exis [facility] jaylen Hung Dr, [facility] Dr GARCIA, htn comp 120, [place] 120, , , first Binh [place], [place] trimesterPrevious RADHA GARCIA, tel: Low Transverse [phone]. C-SectionObesity , [place]. tel: complicating tel: [phone] , first [phone] trimesterEncntr screen for infections w sexl mode of transmissEncounte r for screening for oth infec/parastc diseasesEncounter for screening of mother Crystal [place] Polycystic November- Baez Referring In Womens ovarian 7-201 Brianna. Provider: Health EPHRAIM, syndromeMorbid 6 700 Brianna Baez PO Box (severe) obesity [facility], 700 1522, due to excess [place] Joaquina Hung caloriesEncchela Rice, [facility] Dr GARCIA, for validation architect exam 120, Bahman 120, , (general) Binh [place], [place] (routine) w RADHA GARCIA, tel: abnormal [phone]. findingsPap Smear , [place]. tel: Screening, tel: [phone] CervixEncounter [phone] for removal of intrauterine contraceptive deviceEncounter for removal of intrauterine contraceptive deviceBody mass index (BMI) 50-59.9 , adult [facility] Sep- Baez In Womens 0-200 Brianna. [facility], 9 700 PO Box Medical [address], [place] Dr Anabell, [place], 120, [id number], [place], tel: [phone] , . tel: [phone] Family History Family Member Diagnosis Age At [...] older Payers Payer name Insurance type Covered republican ID Authorization(s) BC[employer] Out [place] BL [id number] BCBS Out [place] BL [id number] BCBS Out Of [place] BL [id number] BCBS Out Of [place] BL [id number] Social History Type Description Quantity Date Captured [...] Appointment Virginia Rosas BOOKED Appointment Virginia Rosas [facility] R C/S BOOKED Future Order: Radiology Order Ultrasound OB Follow-up ([id number]) Ordered Future Order: Lab Order Pap Smear With HPV Reflex If Ordered ASCUS (WPMPap1) Future Order: Radiology Order Complete OB Ultrasound > 14 Ordered Weeks ([id number]) Future Order: Radiology Order Ultrasound OB Follow-up ([id number]) Ordered Date Type Problem Goal Intervention Status [...]
[2017-08-24] MEDS ORDERED: FAMOTIDINE PB 20 MG/50 ML BAG IV ONE (11:10)
[2017-08-24] MEDS ORDERED: CEFAZOLIN PREMIX (MC ONLY) 2 GM/50 ML BAG IV ONE (11:10)
[2017-08-24] MEDS ORDERED: CEFAZOLIN 1 G INJECTION IVP ONE (11:10)
[2017-08-24] MEDS ORDERED: NOZIN NASAL SWAB NAS ONE (11:10)
[2017-08-24] MEDS ORDERED: CITRIC ACID/SODIUM CITRATE 30ml PO ONE (11:10)
--- OUTSIDE RECORDS SUMMARY | 2017-08-24 11:10 | External Medical Summary | Continuity of Care Document ---
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 Provider: Health PA, pregnancies, 7 700 Brianna Baez PO Box third Medical , 700 1522, [facility], [facility] Dr GARCIA, htn comp 120, Bah[place] 120, [id number], , third Binh [place], trimesterPrevious RADHA GARCIA, tel:+2 Low Transverse [phone]. [id number] C-SectionObesity , [place]. tel:+316 complicating tel:[phone] , third [id number] trimester [facility] Supervision of Jun- Baez Referring In Womens Ultrasound other high risk 0-201 Brianna. Provider: Health EPHRAIM, pregnancies, 7 700 Brianna Baez PO Box third Medical , 700 1522, trimesterPre-exis [facility] jaylen Hung Dr, [facility] Dr GARCIA, htn comp 120, [place] 120, [id number], , third Binh [place], [place] trimesterPrevious RADHA GARCIA, tel:+[phone] Low Transverse [phone]. [id number] C-Uxkxbpt54 weeks , [place]. tel:+316 gestation of tel:[phone] [facility] Pre-existing Dec-0 Baez Referring In Womens essential htn 5-201 Brianna. Provider: Health EPHRAIM, comp , 7 700 Brianna Baez PO Box third [id number] Medical K, 700 1522, weeks gestation Center Joaquina Hung, of , [facility] Dr GARCIA, 120, [place] 120, [id number], Binh [place], [place] RADHA GARCIA, tel: [phone]. , [place]. tel: tel: [phone] Crystal [place] Supervision of Nov-2 Baez Referring In Womens other high risk 0-201 Brianna. Provider: Health EPHRAIM, pregnancies, 7 700 Brianna Baez PO Box third Medical K, 700 1522, trimesterPre-exis [facility], ting essential , [facility] Dr GARCIA, htn comp 120, [place] 120, [id number], , third Binh [place], trimesterPrevious RADHA GARCIA, tel:+ Low Transverse [phone]. C-SectionObesity , [place]. tel: complicating tel:[phone] , third [phone] trimester [facility] Pre-existing Nov-2 Baez Referring In Womens Ultrasound essential htn 0-201 Brianna. Provider: Health EPHRAIM, comp , 7 700 Brianna Baez PO Box third Medical K, 700 1522, trimesterMaternal [facility], care for excess Dr, [facility] Dr GARCIA, growth, 120, Bah[place] 120, [id number], third trimester, Binh [place], unspObesity RADHA GARCIA, tel: complicating [phone]. , third , [place]. tel: [id number] weeks tel:4153 gestation of [id number] [facility] Pre-existing Nov-0 Baez Referring In Womens essential htn 2-201 Brianna. Provider: Health EPHRAIM, comp , 7 700 Brianna Baez PO Box second Medical K, 700 1522, trimesterPrevious [facility], Low Transverse Dr, [facility] Dr GARCIA, C-Mebezvc76 weeks 120, Bah[place] 120, , gestation of Binh [place], [place] RADHA GARCIA, tel: [phone]. , [place]. tel: tel: [phone] Crystal [place] Supervision of Oct-1 Baez Referring In Womens other high risk 0-201 Brianna. Provider: Health EPHRAIM, pregnancies, 7 700 Brianna Baez PO Box second Medical K, 700 1522, [facility]is [facility], [facility] Dr GARCIA, htn comp 120, [place] 120, [id number], , second Binh [place], [place] [id number] weeks RADHA GARCIA, tel:+ gestation of [phone]. , [place]. tel: tel: [phone] Crystal [place] Supervision of Sep-1 Baez Referring In Womens other high risk 3-201 Brianna. Provider: Health PA, pregnancies, 7 700 Brianna Baez PO Box second Medical , 700 1522, trimesterPre[facility]exis [facility], [facility] Dr GARCIA, htn comp 120, [place] 120, , , second [place], [place] [id number] weeks RADHA GARCIA, tel:+ gestation of [phone]. , [place]. tel: tel: [phone] Crystal [place] Supervision of Sep-1 Baez Referring In Womens Ultrasound other high risk 3-201 Brianna. Provider: Health PA, pregnancies, 7 700 Brianna Baez PO Box second Medical , 700 1522, [facility], [facility] Dr GARCIA, growth, 120, [place] 120, [id number], second paul, Binh [place], [place] unsp20 weeks RADHA GARCIA, tel:+ gestation of [phone]. , [place]. tel: tel: [phone] Crystal [place] Maternal care for Aug-2 Baez Referring In Womens excess 9-201 Brianna. Provider: Health EPHRAIM, growth, second 7 700 Brianna Baez PO Box tri, unsp18 weeks Medical K, 700 1522, gestation of [facility], Dr, [facility] Dr GARCIA, 120, Bah[place] 120, [id number], Binh [place], [place], RADHA, tel: [phone]. , [place]. tel: tel: [phone] Crystal [place] Aug-0 Baez Referring In Womens 2-201 Brianna. Provider: Health PA, 7 700 Brianna Baez PO Box Medical K, 700 1522, [place] Jo[address] Hung [address], [facility] Dr GARCIA, 120, Bah[place] 120, , Binh [place], [place], RADHA, tel:[phone]. , [place]. tel: tel: [phone] Crystal [place] Pre-existing Jan-2 Baez Referring In Womens essential htn 7-201 Brianna. Provider: Health PA, comp , 7 700 Brianna Baez PO Box first [id number] Medical , 700 1522, weeks gestation [facility] [place], of , [facility] Dr GARCIA, 120, Bah[place] 120, , Binh [place], RADHA GARCIA, tel:[phone]. , [place]. tel: tel: [phone] Crystal [place] Supervision of Jan-1 Baez Referring In Womens other high risk 0-201 Brianna. Provider: Health PA, pregnancies, 7 700 Brianna Baez PO Box first Medical K, 700 1522, trimesterPre-exis [facility] jaylen Hung Dr, [facility] Dr GARCIA, htn comp 120, [place] 120, , , first Binh [place], trimester RADHA, RADHA, tel:[phone]. , [place]. tel: tel: [phone] Crystal [place] Supervision of Jan-0 Baez Referring In Womens other high risk 5-201 Brianna. Provider: Health PA, pregnancies, 7 700 Brianna Baez PO Box first Medical K, 700 1522, trimesterPre-exis [facility] jaylen Hung Dr, [facility] Dr GARCIA, htn comp 120, [place] 120, , , first iBnh [place], trimesterPrevious RADHA, RADHA, tel: Low Transverse [phone]. C-SectionObesity , [place]. tel: complicating tel:[phone] , first [phone] trimesterEncntr screen for infections w sexl mode of transmissEncounte r for screening for oth infec/parastc diseasesEncounter for screening of mother [facility] Cárdenas November- Baez Referring In Womens ovarian 7-201 Brianna. Provider: Health PA, syndromeMorbid 6 700 Brianna Baez PO Box (severe) obesity Medical K, 700 1522, due to excess [facility] [place], caloriesEncntr , [facility] Dr GARCIA, for rn gyn exam 120, [place] 120, , (general) Binh [place], (routine) w [place], [place], tel: abnormal [phone]. findingsPap Smear , [place]. tel: Screening, tel: [phone] CervixEncounter [id number] for removal of intrauterine contraceptive deviceEncounter for removal of intrauterine contraceptive deviceBody mass index (BMI) 50-59.9 , adult [facility] Mar-3 Baez In Womens 0-200 Brianna. Health PA, 9 700 PO Box Medical [address], Center Dr Anabell, [place], 120, , [place], [place], tel: [phone] , [place]. tel: [phone] Family History Family Member Diagnosis Age At [...] republican ID Authorization(s) BCBS Out Of [place] [id number] BCBS Out Of [place] [id number] BCBS Out Of [place] [id number] BCBS Out Of [place] [id number] Social History Type Description Quantity Date Captured Alcohol Use Details No Caffeine Use Details Unknown Tobacco Use Status Smoking Status Former smoker Vital Signs Date / Height Weight BMI Pulse Blood Temperature Respiratory Body Head BMI Time: Rate Pressure Rate Surface Circumference percentile Area 52.6 -2017 0 9:45 kg/m AM eter (2) 297.10 52.6 138/88 -2017 lbs 2 mm[Hg] 9:51 kg/m AM eter (2) Chief Complaint And Reason For Visit Unknown Chief Complaint And Reason For Visit Reason For Referral Reason For Referral Unknown Plan Of Care Date Type Action Status Goal Lifestyle education regarding completed diet Appointment Virginia Rosas BOOKED Appointment Virginia Rosas BOOKED Appointment Virginia Rosas BOOKED Appointment Virginia Rosas BOOKED Appointment Virginia Rosas [facility] R C/S BOOKED Future Order: Lab Order Pap Smear With HPV Reflex If Ordered ASCUS (WPMPap1) Future Order: Radiology Order Complete OB Ultrasound > 14 Ordered Weeks ([id number]) Future Order: Radiology Order Ultrasound OB Follow-up ([id number]) Ordered Future Order: Radiology Order Ultrasound OB Follow-up ([id number]) Ordered Date Type Problem Goal Intervention Status [...] regarding diet Related to Body mass index 50.0-59.9"
--- OUTSIDE RECORDS SUMMARY | 2017-08-24 11:10 | External Medical Summary | Continuity of Care Document ---
:1985 Author Organization [facility] Address [address] [place], [place] [phone] Phone Care Team Providers Name Role Phone [...] obesity due to excess calories Encntr for hem marker exam (general) - (routine) w abnormal findings [...] Team Description For Visit Members Crystal [place] Baez Referring In Womens 2-201 Brianna. Provider: Zack YE, 7 700 Brianna Baez PO Box Medical K, 700 1522, [place] [address], [facility] [place], 120, [place] 120, , Binh [place], [place], [place], tel: [phone]. , [place]. tel: tel: [phone] Crystal [place] Pre-existing Jan- Baez Referring In Womens essential htn comp 7-201 Brianna. Provider: Zack YE, , first 7 700 Brianna Baez PO Box [id number] weeks Medical K, 700 1522, gestation of [place] Joaquina Hung, Dr, [facility] [place], 120, [place] 120, , Binh [place], [place], [place], tel: [phone]. , [place]. tel: tel: [phone] Crystal [place] Jan- Baez In Womens 4-201 Brianna. Zack YE, 7 PO Box Medical [address], [place] [address] Anabell, [facility] [place], 120, [id number], Binh, [place], tel: [phone] , [place]. tel: [phone] Crystal [place] Supervision of Baez Referring In Womens other high risk 0-201 Brianna. Provider: Zack YE, pregnancies, first 7 700 Brianna Baez PO Box trimesterPre-exist Medical K, 700 1522, ing essential htn [facility] Anabell, comp , Dr, [facility] Dr GARCIA, first trimester 120, [place] 120, [id number], Binh [place], RAD[place], [place], tel:[phone]. , [place]. tel: tel: [phone] [facility] Supervision of Baez Referring In Womens other high risk 5-201 Brianna. Provider: Health EPHRAIM, pregnancies, first 7 700 Brianna Baez PO Box trimesterPre-exist Medical K, 700 1522, ing essential htn [place] Joaquina Hung, comp , Dr, [facility] Dr GARCIA, first 120, [place] 120, , trimesterPrevious Binh [place], Low Transverse [place], [place], tel: C-SectionObesity [phone] . complicating , [place]. tel: , first tel:[phone] trimesterEncntr [id number] screen for infections w sexl mode of transmissEncounter for screening for oth infec/parastc diseasesEncounter for screening of mother [facility] Polycystic ovarian November- Baez Referring In Womens syndromeMorbid 7-201 Brianna. Provider: Health EPHRAIM, (severe) obesity 6 700 Brianna Baez PO Box due to excess Medical K, 700 1522, caloriesEncntr for [place] Joaquina Hung, hem marker exam (general) , [facility] Dr GARCIA, (routine) w 120, [place] 120, , abnormal Binh [place], findingsPap Smear [place], [place], tel: Screening, [phone]. CervixEncounter , [place]. tel: for removal of tel: [phone] intrauterine [id number] contraceptive deviceEncounter for removal of intrauterine contraceptive deviceBody mass index (BMI) 50-59.9 , adult [facility] Sep-3 Baez In Womens 0-200 Brianna. Health EPHRAIM, 9 700 [address] Medical [address], [place] An[place]ell, , [place], 120, , [place], [place], tel:[phone] , [place]. tel: [phone] Family History Family Member Diagnosis Age At [...] Unknown Payers Payer name Insurance type Covered republican ID Authorization(s) BCBS Out Of [place] [id number] Social History Type Description Quantity Date Captured [...]
--- OUTSIDE RECORDS SUMMARY | 2017-08-24 11:10 | External Medical Summary | Continuity of Care Document ---
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) w abnormal findings [...] admnin, 1 vac, sngl/combo 19 Yrs + Flu Vaccine - Quadrivalent OB Visit No Charge Hemoglobin count, colorimetric Hematocrit blood count Glucose test Venpnctr fngr/heel/ear stick routne Results Test Name Date and Time Measure Units Reference Range Abnormal Flag Comments Panel Description: Glucose [Mass/volume] in Serum or Plasma --1 hour post 50 g glucose PO GLUCOSE, 129 mg/dL <140 N Test performed at [facility] GESTATIONAL SCREEN 09:31:00 [facility] [id number] (50G)-140 [place] [address]Vsittiuc: NISHANT LANGLEY DO,MPH Panel Description: HEMOGLOBIN + HEMATOCRIT HEMOGLOBIN 09:31:00 9.8 g/dL 11.7-15.5 L HEMATOCRIT 09:31:00 29.4 % 35.0-45.0 L REPORT COMMENT:FASTING :NOTest performed at [facility] [id number] [place] [address]Ixigdxts: NISHANT LANGLEY DO,MPH Advance Directives Directive Yes / No Effective Date File Name Unknown Encounters Encounter Practice Location Reason(s) Diagnoses Date Provider Care Team Description For Visit Members Crystal [place] Supervision of Oct- Baez Referring In Womens other high risk 0-201 Brianna. Provider: Zack YE, pregnancies, 7 700 Brianna Baez PO Box second Medical K, 700 1522, [facility] Dr GARCIA, htn comp 120, [place] 120, [id number], , second Binh [place], [id number] weeks RADHA, RADHA, tel:+2 gestation of [phone]. , [place]. tel: tel: [phone] Crystal [place] Supervision of Sep- Baez Referring In Womens other high risk 3-201 Brianna. Provider: Zack YE, pregnancies, 7 700 Brianna Baez PO Box second Medical , 700 1522, [facility]Pre[facility]exis [facility], [facility] Dr GARCIA, htn comp 120, [place] 120, [id number], , second Binh [place], [place] [id number] weeks [place], RADHA, tel:+ gestation of [phone]. , [place]. tel: tel: [phone] Crystal [place] Supervision of Mar- Baez Referring In Womens Ultrasound other high risk 3-201 Brianna. Provider: Zack YE, pregnancies, 7 700 Brianna Baez PO Box second Medical , 700 1522, [facility] excess Dr, [facility] Dr GARCIA, growth, 120, [place] 120, [id number], second Binh [place], [place] unsp20 weeks [place], [place], tel:2 gestation of [phone]. , [place]. tel: tel: [phone] Crystal [place] Maternal care for Aug-2 Baez Referring In Womens excess 9-201 Brianna. Provider: Zack YE, growth, second 7 700 Brianna Baez PO Box tri, unsp18 weeks Medical , 700 1522, gestation [facility], Dr, [facility] Dr GARCIA, 120, [place] 120, [id number], Binh [place], RADHA, RADHA, tel: [phone]. , [place]. tel: tel: [phone] Crystal [place] Aug-0 Baez Referring In Womens 2-201 Brianna. Provider: Health PA, 7 700 Brianna Baez PO Box Medical , 700 1522, [facility] [place], , [facility] Dr GARCIA, 120, Bah[place] 120, , Binh [place], RADHA, RADHA, tel:[phone]. , [place]. tel: tel: [phone] Crystal [place] Pre-existing Farrukh-2 Baez Referring In Womens essential htn 7-201 Brianna. Provider: Health PA, comp , 7 700 Brianna Baez PO Box first [email or web address] Medical , 700 1522, weeks gestation [facility], of , [facility] Dr GARCIA, 120, Bah[place] 120, , Binh [place], RADHA, RADHA, tel: [phone]. , [place]. tel: tel: [phone] Crystal [place] Supervision of Jan-1 Baez Referring In Womens other high risk 0-201 Brianna. Provider: Health PA, pregnancies, 7 700 Brianna Baez PO Box first Medical , 700 1522, trimesterPre-exis [facility] jaylen Hung Dr, [facility] Dr GARCIA, htn comp 120, Bah[place] 120, [id number], , first Binh [place], [place] trimester RADHA, RADHA, tel: [phone]. , [place]. tel: tel: [phone] Crystal [place] Supervision of Jan-0 Baez Referring In Womens other high risk 5-201 Brianna. Provider: Health PA, pregnancies, 7 700 Brianna Baez PO Box first Medical , 700 1522, [facility]Pre[facility]exis [facility], [facility] Dr GARCIA, htn comp 120, [place] 120, [id number], , first Binh [place], trimesterPrevious RADHA, RADHA, tel: Low Transverse [phone]. C-SectionObesity , [place]. tel: complicating tel: [phone] , first [phone] trimesterEncntr screen for infections w sexl mode of transmissEncounte r for screening for oth infec/parastc diseasesEncounter for screening of mother [facility] Polycystic November- Baez Referring In Womens ovarian 7-201 Brianna. Provider: Health PA, syndromeMorbid 6 700 Brianna Baez PO Box (severe) obesity Medical , 700 1522, due to excess [place] Joaquina Hung caloriesEncntr , [facility] Dr GARCIA, for industrial/organizational psychologist exam 120, Bah[place] 120, , (general) Binh [place], (routine) w RADHA GARCIA, tel: abnormal [phone]. findingsPap Smear , [place]. tel: Screening, tel: [phone] CervixEncounter [phone] for removal of intrauterine contraceptive deviceEncounter for removal of intrauterine contraceptive deviceBody mass index (BMI) 50-59.9 , adult [facility] Sep-3 Baez In Womens 0-200 Brianna. Health PA, 9 700 PO Box Medical [address], [address] Dr [place], [place], 120, , [facility] RADHA, tel: [phone] , [place]. tel: [phone] Family History Family Member Diagnosis Age At [...] democrat ID Authorization(s) BCBS Out Of State [id number] BCBS Out Of State [id number] Social History Type Description Quantity Date Captured Alcohol Use Details No Caffeine Use Details Unknown Tobacco Use Status Smoking Status Former smoker Vital Signs Date / Height Weight BMI Pulse Blood Temperature Respiratory Body Head BMI Time: Rate Pressure Rate Surface Circumference percentile Area 293.40 51.9 -2017 lbs 7 8:39 kg/m AM eter (2) 293.40 51.9 150/83 -2017 lbs 7 mm[Hg] 8:59 kg/m AM eter (2) .1 2017 3 8:26 kg/m AM eter (2) Chief Complaint And [...] Complete OB Ultrasound > 14 Ordered Weeks (15556) Date Type Problem Goal Intervention Status Start [...]
--- OUTSIDE RECORDS SUMMARY | 2017-08-24 11:10 | External Medical Summary | Continuity of Care Document ---
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 Provider: Health EPHRAIM, 7 Brianna Baez PO Box Medical K, 700 1522, [place] [address], [facility] [place], 120, [place] 120, [id number], Binh [place], RADHA GARCIA, tel: [phone]. , [place]. tel: tel: [phone] Crystal [place] Pre-existing Jan- Baez Referring In Womens essential htn comp 7-201 Brianna. Provider: Health EPHRAIM, , first 7 700 Brianna Baez PO Box [email or web address] weeks Medical K, 700 1522, gestation of [place] Joaquina Hung, Dr, [facility] Dr GARCIA, 120, [place] 120, [id number], Binh [place], RADHA GARCIA, tel: [phone]. , [place]. tel: tel: [phone] Crystal [place] Supervision of Baez Referring In Womens other high risk 0-201 Brianna. Provider: Health EPHRAIM, pregnancies, first 7 700 Brianna Baez PO Box trimesterPre-exist Medical K, 700 1522, ing [facility]tn [facility] comp , Dr, [facility] Dr GARCIA, first trimester 120, [place] 120, [id number], Binh [place], RADHA GARCIA, tel: [phone]. , [place]. tel: tel: [phone] Crystal Purclel Supervision of Baez Referring In Womens other high risk 5-201 Brianna. Provider: Health EPHRAIM, pregnancies, first 7 700 Brianna Baez PO Box trimesterPre-exist Medical K, 700 1522, ing essential htn [facility] Jo[facility] Hung, comp , , [facility] Dr GARCIA, first 120, Bah[place] 120, , trimesterPrevious Binh [place], Low Transverse RADHA GARCIA, tel: C-SectionObesity [phone]. complicating , [place]. tel: , first tel: [phone] trimesterEncntr [id number] screen for infections w sexl mode of transmissEncounter for screening for oth infec/parastc diseasesEncounter for screening of mother [facility] Polycystic ovarian May- Baez Referring In Womens syndromeMorbid 7-201 Brianna. Provider: Zack YE, (severe) obesity 6 700 Brianna Baez PO Box due to excess Medical K, 700 1522, caloriesEncntr for [place] Joaquina Hung, psych specialist exam (general) , [facility] Dr GARCIA, (routine) w 120, Bah[place] 120, , abnormal Binh [place], findingsPap Smear RADHA GARCIA, tel: Screening, [phone]. CervixEncounter , [place]. tel: for removal of tel: [phone] intrauterine [phone] contraceptive deviceEncounter for removal of intrauterine contraceptive deviceBody mass index (BMI) 50-59.9 , adult [facility] Sep-3 Baez In Womens 0-200 Brianna. Health EPHRAIM, 9 700 PO Box Medical [address], [address] Anabell, [place], 120, , [place], tel: [phone] , [place]. tel: [phone] Family History Family Member Diagnosis Age At [...] democrat ID Authorization(s) BCBS Out Of State [id number] Social History Type Description Quantity Date Captured [...]
--- OUTSIDE RECORDS SUMMARY | 2017-08-24 11:10 | External Medical Summary | Continuity of Care Document ---
:1985 Author Organization [facility] Address [address] [place], [place] [address] Phone Care Team Providers Name Role Phone Lynette Stiles MD Unavailable Unavailable Allergies, Adverse Reactions, Alerts Substance Reaction Severity Status No Known Drug Allergies Unknown Active Medications Medication Instructions Dosage Effective Dates Status Comments (start - stop) aspirin 81 mg chew 1 tablet by 81 MG - Active chewable tablet oral route every day iron 325 mg (65 mg take 1 tablet by 325 MG - Active iron) tablet ORAL route 2 times every day labetalol 100 mg take 1 [...] Status Pre-existing essential htn comp - , second trimester Previous Low Transverse - 27 weeks gestation of - Supervision of other [...] obesity due to excess calories 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 C-SectionObesity , [place]. tel: complicating tel: [phone] , third [phone] trimester [facility] Pre-existing Nov-2 Baez Referring In Womens Ultrasound essential htn 0-201 Brianna. Provider: Health PA, comp , 7 700 Brianna Baez PO Box third Medical K, 700 152, trimesterMaternal [facility], care for excess , [facility] Dr GARCIA, growth, 120, Bahman 120, , third trimester, Binh [place], [place] unspObesity RADHA GARCIA, tel: complicating [phone]. , third , [place]. tel: [id number] weeks tel: [phone] gestation of [id number] Associates [facility] Pre-existing Nov-0 Baez Referring In Womens essential htn 2-201 Brianna. Provider: Health EPHRAIM, comp , 7 700 Brianna Baez PO Box second Medical K, 700 1522, trimesterPrevious [facility], Low Transverse Dr, [facility] Dr GARCIA, [id number] weeks 120, Bah[place] 120, , gestation of Binh [place], [place] RADHA GARCIA, tel: [phone]. , [place]. tel: tel: [phone] [facility] Supervision of Oct- Baez Referring In Womens other high risk 0-201 Brianna. Provider: Health PA, pregnancies, 7 700 Brianna Baez PO Box second Medical K, 700 1522, trimesterPre-exis [facility] jaylen Hung Dr, [facility] Dr GARCIA, htn comp 120, [place] 120, [id number], , second [place], [place] [id number] weeks RADHA GARCIA, tel:+ gestation of [phone]. , [place]. tel: tel: [phone] Crystal [place] Supervision of Sep-1 Baez Referring In Womens other high risk 3-201 Brianna. Provider: Health EPHRAIM, pregnancies, 7 700 Brianna Baez PO Box second Medical K, 700 1522, trimesterPre-exis [facility], ting essential , [facility] Dr GARCIA, htn comp 120, [place] 120, [id number], , second Binh [place], [place] [id number] weeks RADHA GARCIA, tel: gestation of [phone]. , [place]. tel: tel: [phone] Crystal [place] Supervision of Sep-1 Baez Referring In Womens Ultrasound other high risk 3-201 Brianna. Provider: Health EPHRAIM, pregnancies, 7 700 Brianna Baez PO Box second Medical , 700 1522, trimesterMaternal [facility], care for excess Dr, [facility] Dr GARCIA, growth, 120, [place] 120, , second Binh [place], unsp20 weeks RADHA GARCIA, tel: gestation of [phone]. , [place]. tel: tel: [phone] Crystal [place] Maternal care for Aug-2 Baez Referring In Womens excess 9-201 Brianna. Provider: Zack YE, growth, second 7 700 Brianna Baez PO Box tri, unsp18 weeks Medical , 700 1522, gestation of [facility], , [facility] Dr GARCIA, 120, [place] 120, [id number], Binh [place], RADHA GARCIA, tel: [phone]. , [place]. tel: tel: [phone] Crystal [place] Aug-0 Baez Referring In Womens 2-201 Brianna. Provider: Zack YE, 7 700 Brianna Baez PO Box Medical K, 700 1522, [facility], , [facility] Dr GARCIA, 120, [place] 120, [id number] [place], [place] RADHA GARCIA, tel: [phone]. , [place]. tel: tel: [phone] Crystal [place] Pre-existing Farrukh-2 Baez Referring In Womens essential htn 7-201 Brianna. Provider: Health EPHRAIM, comp , 7 700 Brianna Baez PO Box first [email or web address] Medical , 700 1522, weeks gestation [facility], of , [facility] Dr GARCIA, 120, Bah[place] 120, , Binh [place], [facility] [place], tel: [phone]. , [place]. tel: tel: [phone] Crystal [place] Supervision of Jan-1 Baez Referring In Womens other high risk 0-201 Brianna. Provider: Health EPHRAIM, pregnancies, 7 700 Brianna Baez PO Box first Medical , 700 1522, trimesterPre-exis [facility], [facility] Dr GARCIA, htn comp 120, Bah[place] 120, , , first Binh [place], trimester RADHA, RADHA, tel: [phone]. , [place]. tel: tel: [phone] Crystal [place] Supervision of Jan-0 Baez Referring In Womens other high risk 5-201 Brianna. Provider: Health EPHRAIM, pregnancies, 7 700 Brianna Baez PO Box first [facility], 700 1522, trimesterPre-exis [facility] jaylen Hung Dr, [facility] Dr GARCIA, htn comp 120, [place] 120, , , first Binh [place], trimesterPrevious RADHA, RADHA, tel: Low Transverse [phone]. C-SectionObesity , [place]. tel: complicating tel: [phone] , first [phone] trimesterEncntr screen for infections w sexl mode of transmissEncounte r for screening for oth infec/parastc diseasesEncounter for screening of mother Crystal Cárdenas November- Baez Referring In Womens ovarian 7-201 Brianna. 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 findingsPap Smear , [place]. tel: Screening, tel: [phone] CervixEncounter [phone] for removal of intrauterine contraceptive deviceEncounter for removal of intrauterine contraceptive deviceBody mass index (BMI) 50-59.9 , adult [facility] Sep-3 Baez In Womens 0-200 Brianna. Health PA, 9 700 PO Box Medical 1522, Center Dr [place]abell, [place], 120, , [place], [place], tel: [phone] , [place]. tel: [phone] Family History Family Member Diagnosis Age At [...] Grandmother Alzheimers Immunizations Vaccine Date Status Comments Rhophylac completed Source: New Immunization Record Influenza, injectable, completed Source: New Immunization Record quadrivalent, preservative free, 3 yrs or older Payers Payer name Insurance type Covered republican ID Authorization(s) BCBS Out Of State BL [id number] BCBS Out Of State BL [id number] BCBS Out Of State [id number] Social History Type Description Quantity Date Captured Alcohol Use Details No Caffeine Use Details Unknown Tobacco Use Status Smoking Status Former smoker Vital Signs Date / Height Weight BMI Pulse Blood Temperature Respiratory Body Head BMI Time: Rate Pressure Rate Surface Circumference percentile Area 296.20 52.4 139/83 -2017 lbs 6 mm[Hg] 8:54 kg/m AM eter (2) Chief Complaint And [...] Appointment Virginia Rosas BOOKED Appointment Virginia Rosas [facility] R C/S BOOKED Future Order: Lab Order Pap Smear With HPV Reflex If Ordered ASCUS ([id number]) Future Order: Radiology Order Complete OB Ultrasound > 14 Ordered Weeks ([id number]) Future Order: Radiology Order Ultrasound OB Follow-up ([id number]) Ordered Date Type Problem Goal Intervention Status [...]
--- OUTSIDE RECORDS SUMMARY | 2017-08-24 11:10 | External Medical Summary ---
:1985 Author Organization [facility] Address [address] [phone] Care Team Providers Name Role Phone Era Bonds Unavailable Unavailable PROBLEMS Type Condition ICD9-CM Code QML59-GF Code Onset Condition SNOMED Code Dates Status Problem PCOS (polycystic E28.2 Active 94140709 ovarian syndrome) Problem Dysmenorrhea N94.6 Active 521082188 Problem Morbid obesity E66.01 Active 113729200 due to excess calories ALLERGIES Unknown Allergies SOCIAL HISTORY No smoking Hx information available PLAN OF CARE VITAL SIGNS MEDICATIONS Medication Instructions Dosage Frequency Start End Date Duration Status Date MetFORMIN HCl Orally Two times 2 tablets 90 days Active ER 500 MG daily RESULTS No Results PROCEDURES No Known procedures IMMUNIZATIONS No Known Immunizations
--- OUTSIDE RECORDS SUMMARY | 2017-08-24 11:10 | External Medical Summary | Continuity of Care Document ---
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 Pap Smear Screening, Cervix Encounter for removal of intrauterine contraceptive device Encounter for removal of intrauterine - contraceptive device Body mass index (BMI) 50-59.9 , adult Supervision of other high risk - pregnancies, first trimester Pre-existing essential htn comp - , first trimester Procedures Procedure Date No Charge Sonogram OB Visit No Charge OB Prepayment Agreement Results Test Name Date and Time Measure Units Reference Range Abnormal Flag Comments Unknown Advance Directives Directive Yes / No Effective Date File Name Unknown Encounters Encounter Practice Location Reason(s) Diagnoses Date Provider Care Team Description For Visit Members Crystal [place] Baez Referring In Womens 2-201 Brianna. Provider: Zack YE, 7 700 Brianna Baez PO Box Medical , 700 1522, [place] [address], [facility] Dr GARCIA, 120, [place] 120, , Binh [place], [place], [place], tel: [phone]. , [place]. tel: tel: [phone] Crystal [place] Pre-existing Jan- Baez Referring In Womens essential htn comp 7-201 Brianna. Provider: Health EPHRAIM, , first 7 700 Brianna Baez PO Box [email or web address] weeks Medical , 700 1522, gestation of [facility] An[place]ell, Dr, [facility] Dr GARCIA, 120, [place] 120, [id number], Binh [place], [place], [place], tel: [phone]. , [place]. tel: tel: [phone] Crystal [place] Supervision of Baez Referring In Womens other high risk 0-201 Brianna. Provider: Health PA, pregnancies, first 7 700 Brianna Baez PO Box trimesterPre-exist Medical , 700 1522, ing essential [facility]tn [facility] comp , Dr, [facility] Dr GARCIA, first trimester 120, [place] 120, [id number], Binh [place], RADHA, [place], tel: [phone]. , [place]. tel: tel: [phone] Crystal [place] Supervision of Baez Referring In Womens other high risk 5-201 Brianna. Provider: Health PA, pregnancies, first 7 700 Brianna Baez PO Box trimesterPre-exist Medical K, 700 1522, ing essential htn [place] Joaquina Hung, comp , Dr, [place] Dr GARCIA, first 120, [place] 120, , trimesterPrevious Binh [place], Low Transverse RADHA GARCIA, tel: C-SectionObesity [phone]. complicating , [place]. tel: , first tel: [phone] trimesterEncntr [id number] screen for infections w sexl mode of transmissEncounter for screening for oth infec/parastc diseasesEncounter for screening of mother Crystal [place] Polycystic ovarian November- Baez Referring In Womens syndromeMorbid 7-201 Brianna. Provider: Health EPHRAIM, (severe) obesity 6 700 Brianna Baez PO Box due to excess Medical K, 700 1522, caloriesEncntr for [facility], regional economist exam (general) , [facility] Dr GARCIA, (routine) w 120, [place] 120, , abnormal Binh [place], findingsPap Smear RADHA GARCIA, tel: Screening, [phone]. CervixEncounter , [place]. tel: for removal of tel: [phone] intrauterine [id number] contraceptive deviceEncounter for removal of intrauterine contraceptive deviceBody mass index (BMI) 50-59.9 , adult [facility] Sep-3 Baez In Womens 0-200 Brianna. Health PA, 9 700 PO Box Medical 15[address], [place] [address] [place], [place], 120, , [place], [place], tel:[phone] , [place]. tel: [phone] Family History Family Member Diagnosis Age At [...] Insurance type Covered alliance party ID Authorization(s) [facility] Out Of State [id number] Social History Type Description Quantity Date Captured Alcohol Use Details No Caffeine Use Details Unknown 1 cup per day Tobacco Use Status Ex-cigarette smoker Smoking Status Former smoker Vital Signs Date / Height Weight BMI Pulse Blood Temperature Respiratory Body Head BMI Time: Rate Pressure Rate Surface Circumference percentile Area 285.20 50.5 140/82 -2017 lbs 2 mm[Hg] 9:42 kg/m AM eter (2) Chief Complaint And [...]
--- OUTSIDE RECORDS SUMMARY | 2017-08-24 11:10 | External Medical Summary | Continuity of Care Document ---
:1985 Author Organization [facility] Allergies Active Description Code Type Severity Reaction Onset Reported/ Identified Relationship Clinical to Patient Status Yes No Known 29459 3 N/A N/A Drug 0 Allergies Medications Medication Packaging Start Date Stop Date Route Dosage Sig 07/14/2011 MIRENA 7 DIRECTED Tablet 01/12/2015 METFORMIN HCL 6 TAKE ONE TABLET BY MOUTH TWICE A DAY WITH MORNING AND EVENING MEALS Tablet 12/14/2015 METFORMIN HCL ER 7 take 1 tablet by oral route every day with the evening meal Tablet 02/28/2017 ASPIRIN chew 1 tablet by oral route every day Problems Date Dx Attending Type Code Diagnosis Diagnosed By Coded 02/06/2017 Brianna Baez O10.011 Pre-existing essential htn comp , first trimester 02/06/2017 Brianna Baez O10.011 Pre-existing essential htn comp , first trimester 04/11/2017 Brianna Baez O09.892 Supervision of other high risk pregnancies, second trimester 04/11/2017 Brianna Baez O36.62x0 Maternal care for excess growth, second tri, unsp 04/11/2017 Brianna Baez3A.20 20 weeks gestation of 06/18/2017 Brianna Baez O10.013 Pre-existing essential htn comp , third trimester 06/18/2017 Brianna Baez O36.63x0 Maternal care for excess growth, third trimester, unsp 06/18/2017 Brianna Baez O99.213 Obesity complicating , third trimester 06/18/2017 Brianna Baez3A.29 29 weeks gestation of 07/18/2017 Brianna Baez O09.893 Supervision of other high risk pregnancies, third trimester 07/18/2017 Brianna Baez O10.013 Pre-existing essential htn comp , third trimester 07/18/2017 Baez, Brianna Mock Nadine O34.211 Previous Low Transverse 07/18/2017 Nestor, Brianna Mock Nadine Z3A.34 34 weeks gestation of Procedures Code Description [place] [address] Venpnctr 02/05/2017 fngr/heel/ear stick routne 77514 Metabolic 02/05/2017 panel, comprehensive 66202 Creatinine 02/05/2017 clearance test 81503 ASSAY OF 02/05/2017 PROTEIN, URINE 12059 Automated 02/05/2017 hemogram (CBC) 82726 Ultrasnd exam 04/11/2017 of preg uterus, compl 51306 Ultrasnd preg 06/18/2017 uterus, flwup/repeat 97926 Ultrasnd preg 07/18/2017 uterus, flwup/repeat Results There is no data. Encounters ACCT No. Visit Discharge Status Pt. Type Provider Facility Loc./Unit Complaint Date/Time [id number] 08/21/2017 08/21/2017 CLS Outpatient Baez, 08:40:00 23:59:59 Brianna Mock [id number] 08/17/2017 08/17/2017 CLS Outpatient Baez, 08:21:00 23:59:59 Brianna Emili [id number] 08/14/2017 08/14/2017 CLS Outpatient Baez, 08:40:00 23:59:59 Brianna Emili [id number] 08/07/2017 08/07/2017 CLS Outpatient Baez, 08:40:00 23:59:59 Brianna Emili [id number] 07/31/2017 07/31/2017 CLS Outpatient Baez, 09:00:00 23:59:59 Brianna Emili [id number] 07/18/2017 07/18/2017 CLS Outpatient Baez, 09:10:00 23:59:59 Brianna Mock [id number] 07/18/2017 07/18/2017 CLS Outpatient Baez, 08:45:00 23:59:59 Brianna Emili [id number] 07/03/2017 07/03/2017 CLS Outpatient Baez, 09:45:00 23:59:59 Brianna Mock [id number] 06/18/2017 06/18/2017 CLS Outpatient Baez, 09:05:00 23:59:59 Brianna Mock [id number] 06/18/2017 06/18/2017 CLS Outpatient Baez, 08:45:00 23:59:59 Brianna Mock [id number] 05/31/2017 05/31/2017 CLS Outpatient Baez, 09:00:00 23:59:59 Brianna Mock [id number] 05/09/2017 05/09/2017 CLS Outpatient Baez, 08:49:00 23:59:59 Brianna Mock [id number] 05/08/2017 05/08/2017 CLS Outpatient Baez, 09:50:00 23:59:59 Brianna Mock [id number] 05/08/2017 05/08/2017 CLS Outpatient Baez, 08:30:00 23:59:59 Brianna Mock [id number] 04/11/2017 04/11/2017 CLS Outpatient Baze, 09:15:00 23:59:59 Brianna Mock [id number] 04/11/2017 04/11/2017 CLS Outpatient Baez, 08:45:00 23:59:59 Brianna Mock [id number] 03/27/2017 03/27/2017 CLS Outpatient Baez, 08:40:00 23:59:59 Brianna Mock [id number] 02/28/2017 02/28/2017 CLS Outpatient Baez, 16:56:00 23:59:59 Brianna Mock [id number] 02/22/2017 02/22/2017 CLS Outpatient Baez, 09:50:00 23:59:59 Brianna Mock [id number] 02/09/2017 02/09/2017 CLS Outpatient Baez, 10:58:00 23:59:59 Brianna Mock [id number] 02/05/2017 02/05/2017 CLS Outpatient Baez, 13:58:00 23:59:59 Brianna Mock [id number] 02/01/2017 02/01/2017 CLS Outpatient Baez, 09:43:00 23:59:59 Brianna Mock [id number] 01/31/2017 01/31/2017 CLS Outpatient Baez, 14:15:00 23:59:59 Brianna Mock [id number] 12/15/2015 12/15/2015 CLS Outpatient Baez, 11:43:00 23:59:59 Brianna Mock [id number] 12/14/2015 12/14/2015 CLS Outpatient Baez, 14:15:00 23:59:59 Brianna Mock [id number] 01/31/2017 Document 14:31:15 Registration [id number] 12/14/2015 Document 14:20:44 Registration
[2017-08-24] MEDS: LR 1,000 ML IV SCH ×3 (11:40→13:51)
[2017-08-24] MEDS ORDERED: FentaNYL 100 MCG/2 ML INJECTION ONE ×2 (13:00→13:43)
[2017-08-24] MEDS ORDERED: MORPHINE SULFATE PF 5mg/10ml INJ (Duramorph) ONE (13:02)
[2017-08-24] MEDS ORDERED: BUPIVACAINE 0.25% (2.5mg/ml) PF 30ml INJECTION ONE (13:48)
[2017-08-24] MEDS ORDERED: OXYTOCIN BOLUS BAG 30 UNIT/500 ML ML IV SCH (14:00)
[2017-08-24] MEDS ORDERED: RHOPHYLAC - PHARMACY CONSULT MC ONE (14:33)
[2017-08-24] MEDS ORDERED: DiphenhydrAMINE 25 MG CAPSULE PO PRN (14:33)
[2017-08-24] MEDS ORDERED: SIMETHICONE 80 MG CHEWABLE TABLET PO PRN (14:33)
[2017-08-24] MEDS ORDERED: HYDROCORTISONE 2.5% CREAM 30gm RECTALLY PRN (14:33)
[2017-08-24] MEDS ORDERED: ACETAMINOPHEN 500 MG TABLET PO PRN (14:33)
[2017-08-24] MEDS ORDERED: CALCIUM CARBONATE Chewable 500mg TABLET PO PRN (14:33)
--- NOTE | 2017-08-24 14:42 | Operative Note ---
Operative Note - Date of Operation Date of Operation: 08/24/17 - General : 2 Para: 1 Estimated or Known Gestational Age (weeks): 39 Estimated or Known Gestational Age (days): 3 - Preoperative Diagnosis Previous Section, Other (BMI 54) - Postoperative Diagnosis same as preoperative - Procedure Repeat, Low-transverse - Surgeon Surgeon: Brianna Baez MD - Excellence Leader OB Excellence Leader: Ba Rosario MD - Anesthesia Anesthesia Provider: Ashvin Escobedo CRNA Anesthesia Type: Epidural - Complications Complications: None - Estimated Blood Loss Estimated Blood Loss:: 700 - Findings Findings: viable male, clear fluids, normal uterus, normal adenexa, cephalic, OT - APGARS : 8,9 - [place] Weight Weight (grams): 3277 - Name Name: Roxanna - Description of Procedure Description of Procedure: The patient was taken to the operating room where anesthesia was obtained. She was placed in the dorsal supine position with a leftward tilt. A Howell catheter was placed . She was prepared and draped in the normal sterile fashion. A Traxi pannus retractor was used. A Pfannenstiel incision was made through her previous incision and carried down to the fascia. The fascia was incised in the midline with the scalpel and then extended laterally with the Flores scissors. The fascia was elevated, and the underlying rectus muscles were dissected off. The peritoneum was entered bluntly . This was extended superiorly and inferiorly with good visualization of the bladder. There were omental adhesions to the right anterior peritoneum. These were taken down with the cautery. The bladder blade was inserted. The bladder was low enough on the uterus that a bladder flap was not created. The lower uterine segment was incised in a transverse fashion [id number] with the scalpel and bluntly extended. The membranes were ruptured. The s head was attempted to be delivered. The uterus contracted down and would not allow us to deliver the head. A soft cup Mityvac was placed on the head to help with the delivery. The nose and mouth were suctioned. The cord was clamped and cut. The was handed to Dr. Gonsalves who was asked to attend the delivery due to the patient's BMI. The placenta delivered spontaneously. The uterus was exteriorized and cleared of all clots and debris. The uterus was closed with running, locked 0-monocryl. The right third of the incision was imbricated with 0-monocryl for hemostasis. Hemostasis was obtained on the serosal edges with cautery. The uterus was returned to the abdomen. The gutters were cleared of all clots and debris. The uterine incision was inspected one final time and still noted to be hemostatic. The peritoneum was closed with running 2-0 vicryl. Hemostasis was obtained in the rectus muscles with the cautery. The fascia was closed with running 0-vicryl. Hemostasis was obtained in the subcutaneous tissue with the cautery. The deep tissue was closed with running 2-0 chromic in 2 layers. The skin was closed with darrell. The Provena wound vac was placed due to the large distance between skin and fascia. Sponge, sharp, and instrument counts were correct. The patient tolerated the procedure well and was taken to the recovery room in good condition.
[2017-08-24] MEDS ORDERED: D5LR 1,000 ML IV SCH (14:45)
[2017-08-24] MEDS ORDERED: OXYTOCIN DRIP 30 UNIT/500 ML ML IV SCH (14:45)
[2017-08-24] MEDS ORDERED: NALOXONE 2 MG/2 ML INJECTION PFS IVP PRN (14:45)
[2017-08-24] MEDS: IBUPROFEN 800 MG TABLET PO PRN (18:44)
[2017-08-24] MEDS: HYDROCODONE/APAP 5mg/325mg TABLET PO PRN (20:25)
[2017-08-24] MEDS: SIMETHICONE 80 MG CHEWABLE TABLET PO SCH ×2 (20:25→21:58)
[2017-08-24] MEDS: LABETALOL 100 MG PO SCH (21:10)
--- NOTE | 2017-08-24 21:27 | Anesthesia Postoperative Note ---
- Date and Time Date: 08/24/17 Time: 21:26 - Status Patient Participated in Evaluation: Patient Participated in Person Vital Signs: Temperature 99.8 F 08/24/17 11:46 Pulse Rate 81 08/24/17 11:46 Respiratory Rate 16 08/24/17 11:46 Blood Pressure 120/70 08/24/17 11:46 Respiratory Function: Airway Patent, Regular Respirations Cardiovascular Function: Regular Pulse Mental Status: Alert and Oriented Pain Intensity: 4 Hydration: Taking PO Fluids Complications During Recover: None Apparent - Follow-Up Instructions Instructions: Per Surgeon
[2017-08-25] MEDS: IBUPROFEN 800 MG TABLET PO PRN ×3 (04:37→20:44)
[2017-08-25] MEDS: HYDROCODONE/APAP 5mg/325mg TABLET PO PRN ×3 (04:37→20:45)
--- NOTE | 2017-08-25 07:36 | OB/GYN Progress Note ---
OB-PP Progress Note - General PPD1 POD:: POD1 Maternal Group B Strep: Negative Maternal blood type: O- Maternal Rubella Status: Immune - Subjective Date: 08/25/17 Lochia: Minimal Pain: controlled Voiding: morrissey still in place Nausea or Vomiting Present: No - Objective Vital Signs: Last Vital Signs Temp 97.8 F 08/25/17 02:00 Pulse 88 08/25/17 02:00 Resp 12 08/25/17 02:00 BP 116/62 08/25/17 02:00 Pulse Ox 100 08/25/17 02:00 Urine Output: adequate General: alert and oriented Respiratory: non-labored Abdomen: fundus firm, non-tender Incision: clean, dry, dressed Extremities: non-tender Side: bilateral Site: ankle Edema Degree: 1+ Laboratory: Laboratory Results - last 24 hr 08/24/17 08/24/17 08/24/17 11:35 11:35 17:08 WBC 9.5 RBC 3.70 L Hgb 10.8 L Hct 32.6 L MCV 88.1 MCH 29.2 MCHC 33.1 RDW Std Deviation 51.9 H Plt Count 207 MPV 9.9 Immature Gran % (Auto) 0.6 H Neut % (Auto) 74.0 H Lymph % (Auto) 19.3 L [place] % (Auto) 5.4 Eos % (Auto) 0.6 Baso % (Auto) 0.1 Neut # (Auto) 7.0 Lymph # (Auto) 1.8 [place] # (Auto) 0.5 Eos # (Auto) 0.1 Baso # (Auto) 0.0 Abs Immat Gran (auto) 0.06 H Hgb /Adult Ratio Blood Type O Negative Antibody Screen Negative RhIG Candidate? Is a candidate 08/24/17 08/24/17 08/24/17 19:27 19:27 22:59 WBC 10.7 RBC 3.28 L Hgb 9.7 L 9.9 L Hct 29.1 L MCV 88.7 MCH 29.6 MCHC 33.3 RDW Std Deviation 50.2 Plt Count 182 MPV 9.4 Immature Gran % (Auto) Neut % (Auto) Lymph % (Auto) [place] % (Auto) Eos % (Auto) Baso % (Auto) Neut # (Auto) Lymph # (Auto) [place] # (Auto) Eos # (Auto) Baso # (Auto) Abs Immat Gran (auto) Hgb /Adult Ratio 0.0000 Blood Type Antibody Screen RhIG Candidate? - Assessment Assessment: SP, Repeat C/S - Plan Plan: routine care
[2017-08-25] MEDS: LABETALOL 100 MG PO SCH ×2 (10:37→22:10)
[2017-08-25] MEDS: NOZIN NASAL SWAB NAS SCH ×3 (10:39→20:54)
[2017-08-25] MEDS: DOCUSATE CALCIUM 240 MG CAPSULE PO SCH (11:15)
--- NOTE | 2017-08-25 13:05 | Pharmacy Consult ---
Pharmacy Consult-Rhophylac - Laboratory Information 08/24/17 08/24/17 08/24/17 11:35 17:08 19:27 Hgb /Adult Ratio 0.0000 Blood Type O Negative RhIG Candidate? Is a candidate - Consult Information Rh FACTOR CONSULT: Mother Blood Type = O NEGATIVE Child Blood Type = B POSITIVE Hgb / Adult Ratio = 000.00 Will give Rho D Immunglobulin 300mcg IV x 1 dose. Thank you, Kathi Nguyen, PharmD
[2017-08-25] MEDS ORDERED: RHO(D) IMMUNE GLOBULIN 300 MCG/2 ML INJECTION IVP ONE (13:15)
[2017-08-25] MEDS: SIMETHICONE 80 MG CHEWABLE TABLET PO SCH ×3 (18:51→20:54)
[2017-08-26] MEDS: NOZIN NASAL SWAB NAS SCH ×2 (02:34→09:40)
--- NOTE | 2017-08-26 07:22 | CT Scan Report ---
EXAM: CT head/brain wo con DATE: 08/25/2017 12:00 AM ENCOUNTER: Initial INDICATION: headache after a fall this morning COMPARISON: None available. TECHNIQUE: 5 mm axial tomographic images were obtained of the head without contrast. The current CT scan was performed using radiation dose-reduction techniques. FINDINGS: The rod-white matter junction is normal. No intra or extra-axial mass or hemorrhage is identified. There is no midline shift. Ventricles are normal in size, shape, and morphology. The basilar cisterns are patent. No acute osseous or soft tissue abnormality. The visualized paranasal sinuses are normal. The visualized portions of the orbits and globes are normal. The mastoid air cells are clear. IMPRESSION: No acute intracranial process identified by CT. The above report concurs with the preliminary report provided by virtual radiologic at 12:38 PM. .
[2017-08-26] MEDS: LABETALOL 100 MG PO SCH (09:41)
[2017-08-26] MEDS: HYDROCODONE/APAP 5mg/325mg TABLET PO PRN (10:03)
[2017-08-26] MEDS: DOCUSATE CALCIUM 240 MG CAPSULE PO SCH (10:04)
[2017-08-26] MEDS: IBUPROFEN 800 MG TABLET PO PRN (10:04)
[2017-08-26 10:11] VITALS: RESP 17
--- NOTE | 2017-08-26 11:39 | OB/GYN Progress Note ---
OB-PP Progress Note - General PPD2 POD:: POD2 Maternal Group B Strep: Negative Maternal blood type: O- Maternal Rubella Status: Immune - Subjective Date: 08/26/17 Lochia: Minimal Pain: controlled Voiding: voiding Nausea or Vomiting Present: No - Objective Vital Signs: Last Vital Signs Temp 98.3 F 08/26/17 09:00 Pulse 86 08/26/17 09:00 Resp 17 08/26/17 09:00 BP 127/69 08/26/17 09:00 Pulse Ox 100 08/26/17 09:00 General: alert and oriented Respiratory: non-labored Abdomen: fundus firm, non-tender Incision: dressed Extremities: non-tender Edema: none - Assessment Assessment: SP, Repeat C/S - Plan Plan: routine care, discharge home Had fall yesterday with nurse. CT of head negative, sore today. Discussed PT after some recovery from RLTCS. Desires dismissal today. Will dismiss to home. Pt to f/u next week for removal of wound vac and staple removal.
[2017-08-26 12:43] VITALS: BP 145/70; PULSE 98; TEMP 98.1; O2SAT 98
== END 2017-08-26 15:00 | disposition home or self-care (01) | DRG 765 ==
LOC: MC 11:01
PROVIDERS: ADMIT Obstetrics & Gynecology; ATTEND Obstetrics & Gynecology